=== PATIENT | female | born 1980 | race Caucasian/White ===

== ENCOUNTER 2021-10-30 14:36 | Emergency (ER) | payer OTHER, SELFPAY ==
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
[2021-10-30 14:48] VITALS: BP 126/87; PULSE 105; O2SAT 100
[2021-10-30 14:57] VITALS: BP 126/68; PULSE 100; RESP 18; TEMP 36.7; O2SAT 98; BMI 37.2
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
[2021-10-30] MEDS: Acetaminophen 325 MG TABLET 975 MG PO (15:09)
[2021-10-30 16:07] VITALS: RESP 17
[2021-10-30] MEDS: Cyclobenzaprine HCl 10 MG TABLET PO (16:11)
== END 2021-10-30 16:28 | disposition home or self-care (01) ==
PROVIDERS: Emergency Provider Emergency Medicine; PCP Family Medicine
DX: S09.90XA Unspecified injury of head, initial encounter (principal); S29.012A Strain of muscle and tendon of back wall of thorax, initial encounter; V48.5XXA Car driver injured in noncollision transport accident in traffic accident, initial encounter; Y93.89 Activity, other specified; Y92.413 State road as the place of occurrence of the external cause; Y99.9 Unspecified external cause status
CPT/HCPCS: 70450; 71046; 72072; 72125; 99283; 99284

== ENCOUNTER 2024-09-24 12:37 | Outpatient (AMB) | payer OTHER, SELFPAY ==
--- NOTE | 2024-09-24 12:46 | A.OFFVIS_ITS ---
Vital Signs 09/24/24 12:47 Height 5 ft 3 in Weight 223 lb 2 oz BMI 39.5 BP 118/70 Blood Pressure Location Lt brachial Position Sitting Pulse 93 Pulse Source Pulse Oximeter Pulse Oximetry (%) 98 Oxygen Delivery Method Room Air Intake Visit Reasons: SS Intake Note: Patient presents for follow up on sjogren's, and would like refill on her Plaquenil. Allergies latex Allergy (Mild, Verified 09/24/24 12:51) Rash Tetracyclines Allergy (Verified 09/24/24 12:51) Unconscious HPI HPI SS: Details: Increase fatigue. Hard to get up out bed. Napping. Sicca symptoms are controlled in the last month. She sees forestry farm laborer regularly and uses a topical ointment to her eyes at night with benefit. Lost 25lb with semiglutide SC. She had an episode of left hand swelling last week. She took NSAID ibuprofen with benefit. She continues to have swelling in left hand but pain is tolerable. Prior to diagnosis of Sjogren syndrome she had swelling in her right hand. No raynaud's syndrome episodes. She wears gloves in the cold. [facility] Medical History (Updated 09/24/24 @ 14:22 by Chandler Jones MD) Sjogrens syndrome No known health problems Surgical History (Updated 09/24/24 @ 12:57 by Kika Carrera CMA) Bariatric surgery status Hx of LASIK Hx of breast reduction, elective Family History (Updated 09/24/24 @ 12:57 by Kika Carrera CMA) Mother Arthritis Social History (Updated 09/24/24 @ 12:58 by Kika Carrera CMA) Alcohol intake: current Comment: once weekly Patient Tobacco Use Status: Former Tobacco user Review of Systems Const All systems reviewed & are unremarkable except as noted in HPI and below Physical Exam Vital Signs: Last Vital Signs Pulse 93 09/24/24 12:47 BP 118/70 09/24/24 12:47 Pulse Ox 98 09/24/24 12:47 Oxygen Delivery Method Room Air 09/24/24 12:47 BMI result Body Mass Index 39.5 Const Other: General: Comfortable CVS: RRR Respiratory: clear to auscultation bilaterally. Good respiratory effort Skin: No lesions seen, no digital ulcerations. Discoloration of toes with redness and slight purple color MSK: Tender left 2nd MCP with synovitis present. Tender right 3rd MCP. No PIP tenderness. No wrist tenderness. She is able to make a fist with her hands. Good range of motion of upper extremities and lower extremities. Assessment & Plan Assessment & Plan (1) Sjogrens syndrome: Comment: History of Sjogren syndrome with sicca symptoms, seronegative, confirmed on minor salivary gland biopsy and Raynaud's syndrome. Hydroxychloroquine started in 2020 due to fatigue, with benefit. She has had relapse of fatigue most recently with recent episode of inflammatory arthritis affecting left wrists. 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 We will treat current symptoms with a course of prednisone. If she has recurrence, we will consider treatment with leflunomide. I advised her against the use of NSAIDs due to history of bariatric surgery due to increased risk of GI side effects including gastric ulcers with NSAID use. She has a gastric sleeve. Code(s): M35.00 - Sjogren syndrome, unspecified Category: Medical Qualifiers: Sjogren organ or system involvement: inflammatory arthritis Qualified Code(s): M35.05 - Sjogren syndrome with inflammatory arthritis Plan: Stop ibuprofen Continue hydroxychloroquine 400 mg daily. Requesting eye exam for hydroxychloroquine surveillance Prednisone course prescribed Labs to assess disease and drug monitoring on high-risk medication ordered She will monitor her joint symptoms with a log If she has recurrent joint symptoms, we will consider adding DMARD leflunomide Continue to follow-up with forestry farm laborer Dr. Silveira for dry eyes She will start going to the gym next week. We discussed importance of having a regular exercise routine Return to clinic in 3 months (2) Raynaud disease: Comment: Controlled with conservative management Code(s): I73.00 - Raynaud's syndrome without gangrene Category: Medical Qualifiers: Raynaud?s-associated gangrene presence: without gangrene Qualified Code(s): I73.00 - Raynaud's syndrome without gangrene Plan: Continue conservative management Orders: Orders Alanine Aminotransferase Today Z79.60 - double end production grinder (current) use of unspecified immunomodulators and immunosuppressants Hepatitis B,C Profile Today M35.00 - Sjogren syndrome, unspecified T Spot TB Today M35.00 - Sjogren syndrome, unspecified Complement C3 Today M35.00 - Sjogren syndrome, unspecified Protein Electrophoresis, Serum Today M35.00 - Sjogren syndrome, unspecified Cyclic Citrullinated Peptide Today M35.00 - Sjogren syndrome, unspecified Rheumatoid Factor Today M35.00 - Sjogren syndrome, unspecified Erythrocyte Sedimentation Rate Today M35.00 - Sjogren syndrome, unspecified C Reactive Protein Today M35.00 - Sjogren syndrome, unspecified Aspartate Amino Transferase Today Z79.60 - shelter (current) use of unspecified immunomodulators and immunosuppressants Complete Blood Count Auto Diff Today Z79.60 - shelter (current) use of unspecified immunomodulators and immunosuppressants Creatinine Today Z79.60 - shelter (current) use of unspecified immunomodulators and immunosuppressants Complement C4 Today M35.00 - Sjogren syndrome, unspecified Medications: New prednisone Take 3 tablets daily 3 days, 2 tablets daily 3 days, 1 tablet daily 3 days then stop 5 mg PO DIRECTED 18 tabs 0RF Coding Level of Care Code Est Pt Level 4 (94678) Complex EM visit Add On G2211 Diagnoses Sjogren syndrome with inflammatory arthritis M35.05 Sjogren organ or system involvement: inflammatory arthritis Raynaud's disease without gangrene I73.00 Raynaud?s-associated gangrene presence: without gangrene
[2024-09-24 12:47] VITALS: BP 118/70; PULSE 93; O2SAT 98; BMI 39.5
== END 2024-09-24 13:44 | disposition home or self-care (01) ==
PROVIDERS: PCP Family Medicine; Visit Provider Internal Medicine Rheumatology
DX: M35.05 Sjogren syndrome with inflammatory arthritis (principal); I73.00 Raynaud's syndrome without gangrene
CPT/HCPCS: 99214

== ENCOUNTER 2024-09-24 12:37 | Outpatient (REF) | payer OTHER, SELFPAY ==
[2024-09-24 17:22] LABS: MANUAL DIFF FLAG NO
[2024-09-24 17:30] LABS: Basophils Absolute Auto 0.1 X10*3/uL (0.0-0.2); Basophils Percent Auto 0.7 % (0-2); Eosinophils Absolute Auto 0.1 X10*3/uL (0.0-0.4); Eosinophils Percent Auto 0.8 % (0-4); Hematocrit 34.4 % (37.0-47.0); Hemoglobin 11.2 g/dl (12.0-16.0); Imm Gran Abs Auto 0.03 X10*3/uL (0.00-0.03); Imm Gran Pct Auto 0.3 % (0.0-0.4); Lymphocytes Absolute Auto 1.6 X10*3/uL (1.2-4.9); Mean Corpuscular HGB Conc 32.6 g/dl (31.0-35.0); Mean Corpuscular Hemoglobin 27.2 pg (27.0-33.0); Mean Corpuscular Volume 83.5 fL (80.0-98.0); Monocytes Absolute Auto 0.5 X10*3/uL (0.1-1.2); Neutrophils Absolute Auto 6.5 x10*3/uL (2.0-8.3); Neutrophils Percent Auto 74.2 % (45-73); Platelet Count 413 X10*3/uL (160-400); Red Blood Count 4.12 X10*6/uL (4.20-5.50); Red Cell Distribution Width 14.9 % (11.0-16.0); White Blood Count 8.8 X10*3/uL (4.8-10.8)
[2024-09-24 17:38] LABS: Rheumatoid Factor < 13.0 IU/mL (<15.0)
[2024-09-24 17:40] LABS: Alanine Aminotransferase 63 U/L (0-31); Aspartate Amino Transferase 59 U/L (5-31); C Reactive Protein 0.71 mg/dL (< or = 0.50); Estimated Glomerular Filt Rate > 60
[2024-09-24 18:08] LABS: Erythrocyte Sedimentation Rate 13 MM/HR (0-20)
[2024-09-25 03:52] LABS: HBS Num1 192.53 mIU/mL (0-7.99); HBc Num1 0.25 S/CO (0.00-0.79); HBsAGNum1 0.32 S/CO (0.00-0.99); Hepatitis B Core Antibody Nonreactive (Nonreactive); Hepatitis B Surface Antigen Negative (Negative); ~HepC Num1 0.12 S/CO (0.00-0.79); ~Hepatitis B Surface Antibody REACTIVE (Nonreactive); ~Hepatitis C Antibody Nonreactive (Nonreactive)
[2024-09-25 10:39] LABS: Complement C3 143 mg/dL (83-193)
[2024-09-27 17:33] LABS: TS Negative Control Passed; TS Panel A 0; TS Panel B 0; TS Positive Control Passed; TSpotTB Negative (Negative)
[2024-09-27 18:28] LABS: Cyclic Citrullinated Peptide <16 UNITS
[2024-09-29 09:18] LABS: Prot Elec - Albumin 3.5 g/dL (3.8-4.8); Prot Elec - Alpha1 0.3 g/dL (0.2-0.3); Prot Elec - Alpha2 0.7 g/dL (0.5-0.9); Prot Elec - Beta 1 0.5 g/dL (0.4-0.6); Prot Elec - Beta 2 0.4 g/dL (0.2-0.5); Prot Elec - Total Protein 6.4 g/dL (6.1-8.1)
== END 2024-09-24 12:38 | disposition home or self-care (01) ==
LOC: HO.HKASLDS 12:37
PROVIDERS: PCP Family Medicine; Visit Provider Internal Medicine Rheumatology
DX: M35.00 Sjogren syndrome, unspecified (principal); Z79.60 Long term (current) use of unspecified immunomodulators and immunosuppressants; Z11.1 Encounter for screening for respiratory tuberculosis
CPT/HCPCS: 36415; 82565; 84165; 84450; 84460; 85025; 85652; 86140; 86160; 86200; 86431; 86481; 86704; 86706; 86803; 87340

== ENCOUNTER 2024-10-29 09:57 | Outpatient (REF) | payer OTHER, SELFPAY ==
--- OUTSIDE RECORDS SUMMARY | 2024-10-29 10:47 | XMS_ITS | Data Portability ---
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 Plan of Treatment Reminders Order Date Submit Date Provider Last Modified By Organization Details Last Modified Time Details Appointments None recorded. Lab lipid panel, serum 2016 017 MONY [facility], [address], [address], [place], [address], 7 20:17:25 Referral nutritionis t/dietitian referral 2016 017 [email or web address] Not available 7 13:58:08 physiatry referral - pt has chronic pain in neck//spasm in upper back/headac hes. pt feels she has lower extremity numbness and is concerned re cervical spinal stenosis. Pt tried PT few yrs ago and found no relief 2016 017 abigby [facility], [address], [address], [place], [address], 8 12:44:49 Procedures cerumen removal (PROC) 2016 017 MONY In-Office Order, Internal Use Only DO Not Attach Compendium DO Not Attach Compendium, Do Not Delete/merge, [id number] 7 10:54:44 Surgeries None recorded. Imaging None recorded. Medication Orders ranitidine 150 mg tablet 2016 017 [id number], [address], [place], [id number], 8 13:54:08 Patient TargetsNo targets recorded. Patient Instructions Encounter Date Encounter Id Patient Instructions Last Modified By Organization Details Last Modified Time 06/15/2017 [id number] earwax blockage: care instructions [email or web address] Not available 06/15/2017 10:52:38 rec. get debrox kit - apply 5 drops in affected ear before bedtime, then place cotton ball - do so nightly x 1-3 nights, then use bulb syringe with warm water in the shower on the following day to irrigate the blockage out [email or web address] Not available 06/15/2017 10:31:23 I have reviewed the note and agree with the assessment and plan of care. [email or web address] Not available 06/15/2017 12:39:08 10/13/2017 [id number] back pain: care instructions Not available 10/13/2017 14:18:30 back care and preventing injuries: care instructions Not available 10/13/2017 14:18:30 I have reviewed the note and agree with the assessment and plan of care. marco Not available 10/13/2017 15:03:19 Reason for Referral Physiatry Referral for Neck pain pt has chronic pain in neck//spasm in upper back/headaches. pt feels she has lower extremity numbness and is concerned re cervical spinal stenosis. 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 Refer ral for Body mass index 40+ - severely obese Referring Physician: Oneil Penn, Internal Medicine, Encounter Date: 03/23/2017 Results Created Date Observation Date Name Description Value Unit Range Abnormal Flag Note LastModifiedBy Organization Detail LastModifiedTime 03/23/20 17 03/23/2017 CMP, serum or plasm a glucose 93 mg/dL (70-99 ) Not Available [facility] [address] [place], [address], 03/23/2017 20:17:24 03/23/20 17 03/23/2017 CMP, serum or plasm a BUN 12 mg/dL (6-20) Not Available [facility] [address] [place], [address], 03/23/2017 20:17:24 03/23/2003/23/2017 CMP, serum or plasm a creatinine 0.8 mg/dL (0.5-1 .0) Not Available [facility] [address] [place], [address], 03/23/2017 20:17:24 03/23/2003/23/2017 CMP, serum or plasm a sodium 139 mmol/ L (133-1 45) Not Available [facility] [address] [place], [address], 03/23/2017 20:17:24 03/23/2003/23/2017 CMP, serum or plasm a potassium 4.0 mmol/ L (3.6-5 .2) Not Available [facility] [address] [place], [address], 03/23/2017 20:17:24 03/23/2003/23/2017 CMP, serum or plasm a chloride 101 mmol/ L (98-10 7) Not Available [facility] [address] [place], [address], 03/23/2017 20:17:24 03/23/2003/23/2017 CMP, serum or plasm a bicarbonate 24 mmol/ L (22-29 ) Not Available [facility] [address] [place], [address], 03/23/2017 20:17:24 03/23/2003/23/2017 CMP, serum or plasm a anion gap 14 (4-17) Not Available [facility] [address] [place], [address], 03/23/2017 20:17:24 03/23/2003/23/2017 CMP, serum or plasm a albumin 4.2 gm/dL (3.4-4 .8) Not Available [facility] [address] [place], [address], 03/23/2017 20:17:24 03/23/20 17 03/23/2017 CMP, serum or plasm a calcium 8.9 mg/dL (8.6-1 0.5) Not Available [facility] [address] [place], [address], 03/23/2017 20:17:24 03/23/2003/23/2017 CMP, serum or plasm a bilirubin,to oumar 0.3 mg/dL (0-1.2 ) Not Available [facility] [address] [place], [address], 03/23/2017 20:17:24 03/23/2003/23/2017 CMP, serum or plasm a total protein 6.8 gm/dL (6.2-8 .2) Not Available [facility] [address] [place], [address], 03/23/2017 20:17:24 03/23/2003/23/2017 CMP, serum or plasm a Ag ratio 1.6 Not Available [facility] [address] [place], [address], 03/23/2017 20:17:24 03/23/2003/23/2017 CMP, serum or plasm a AST 23 U/L (0-32) Not Available [facility] [address] [place], [address], 03/23/2017 20:17:24 03/23/2003/23/2017 CMP, serum or plasm a alk phos 65 U/L (35-10 4) Not Available [facility] [address] [place], [address], 03/23/2017 20:17:24 03/23/2003/23/2017 CMP, serum or plasm a ALT 17 U/L (0-33) Not Available [facility] [address] [place], [address], 03/23/2017 20:17:24 03/23/2003/23/2017 CMP, serum or plasm a est GFR non 96 mL/mi n/1.7 3_M2 The CKD-E PI creat inine equat ion has not been valid ated in child jelena (<18 years ), pregn ant women , in some racia l or ethni c subgr oups other than Cauca sians and Afric an Ameri cans. Not Available [facility] [address] [place], [address], 03/23/2017 20:17:24 03/23/2003/23/2017 CMP, serum or plasm a est GFR 111 mL/mi n/1.7 3_M2 The CKD-E PI creat inine equat ion has not been valid ated in child jelena (<18 years ), pregn ant women , in some racia l or ethni c subgr oups other than Cauca sians and Afric an Ameri cans. Not Available [facility] [address] [place], [address], 03/23/2017 20:17:24 03/23/2003/23/2017 lipid panel , serum cholesterol, total 162 mg/dL (<200) Not Available [facility] [address] [place], [address], 03/23/2017 20:17:25 03/23/2003/23/2017 lipid panel , serum triglyceride 89 mg/dL (<150) Not Available [facility] [address] [place], [address], 03/23/2017 20:17:25 03/23/2003/23/2017 lipid panel , serum HDL chol 57 mg/dL (>39) Not Available [facility] [address] [place], [address], 03/23/2017 20:17:25 03/23/20 17 03/23/2017 lipid panel , serum LDL cholesterol, calculated 87 mg/dL (0-130 ) Not Available [facility] [address] [place], [address], 03/23/2017 20:17:25 03/23/20 17 03/23/2017 lipid panel , serum non HDL cholesterol (calc) 105 mg/dL (<160) Not Available [facility] [address] [place], [address], 03/23/2017 20:17:25 Result Notes None recorded. Problems Name Problem SNOMED Code Status Onset Date Resolution Date Notes Provider Name and Address Organization Details Recorded Time Abnormal weight gain 628694230 Completed 201104/17/2014 RECORDED 05/30/20 12 8:37AM BY SAMRA RAPP MA, IVORY ON/JUAN DAVID KellerAlemanuel arvind null, [facility] 6 15:54:50 Otitis media 69313409 Completed 201104/17/2014 RECORDED 05/30/20 12 8:37AM BY SAMRA RAPP MA, ANNOTATI ON/JUAN DAVID KellerAlemanuel arvind null, [facility] 6 15:54:50 Acute pharyngi tis 896376995 Completed 200704/17/2014 RECORDED 08/18/20 08 10:53AM BY IVORY MONTEMAYOR ON/JUAN DAVID KellerAlessan arvind null, [facility] 6 15:54:50 Acute sinusiti s 29800239 Completed 201104/17/2014 RECORDED 05/30/20 12 8:37AM BY SAMRA RAPP MA, ANNOTATI ON/ADDYAS KellerAlessan arvind null, [facility] 6 15:54:50 Asthma 746935545 Completed 201104/17/2014 IMPRESSI ON: LIKELY EXACERBA BHARATI BY URI/SINU SITIS. LUNGS SOUNDS GOOD TODAY; NO INDICATI ON FOR PREDNISO NE. CONTINUE WITH INHALERS DIRECTED .; RECORDED 05/30/20 12 8:37AM BY SAMRA RAPP MA, IVORY ON/ADDEN DUM Oneil D'Alessan arvind null, [facility] 6 15:54:50 Candidal vulvovag initis 84671819 Completed 201104/17/2014 IMPRESSI ON: PT GETS FREQUENT VAGINITI S SECONDAR Y TO ABX USE. RX GIVEN FOR PT TO FILL IF SXS OCCUR.; RECORDED 05/30/20 12 8:37AM BY SAMRA RAPP MA, IVORY ON/ADDEN DUM Oneil D'Alessan arvind null, [facility] 6 15:54:50 Impacted cerumen 04636381 Completed 201104/17/2014 RECORDED 05/30/20 12 8:37AM BY SAMRA RAPP MA, IVORY ON/ADDEN DUM Oneil Librado'Alessan arvind null, [facility] 6 15:54:50 Cough 76425489 Completed 200804/17/2014 RECORDED 09/19/19 09 2:55PM BY ANDRE ARVIZU MA, ANNOTATI ON/ADDEN DUM Oneil Librado'Alessan arvind null, [facility] 6 15:54:50 Dysuria 19675853 Completed 200704/17/2014 RECORDED 08/18/20 08 11:09AM BY IVORY MONTEMAYOR ON/ADDEN DUM Oneil Librado'Alessan arvind null, [facility] 6 15:54:50 Fever 154865077 Completed 200804/17/2014 RECORDED 09/19/19 09 2:55PM BY ANDRE ARVIZU MA, ANNOTATI ON/ADDEN DUM Oneil D'Alessan arvind null, [facility] 6 15:54:50 General examinat ion of patient Completed 200704/17/2014 RECORDED 08/18/20 08 10:53AM BY IVORY MONTEMAYOR ON/ADDEN DUM Oneil LibradoSlava arvind null, [facility] 6 15:54:50 Shoulder joint pain 366216918 Completed 201104/17/2014 RECORDED 05/30/20 12 8:37AM BY SAMRA RAPP MA, IVORY ON/ADDEN DUM Oneil Hung arvind null, [facility] 6 15:54:50 Low back pain 480603050 Completed 201104/17/2014 IMPRESSI ON: MILD SCIATICA . NO SXS OF THIS FOR 2 DAYS; RECORDED 05/30/20 12 8:36AM BY SAMRA RAPP MA, IVORY ON/ADDEN DUM Oneil Hung arvind null, [facility] 6 15:54:50 Malaise and fatigue 890465319 Completed 201104/17/2014 RECORDED 05/30/20 12 8:37AM BY SAMRA RAPP MA, IVORY ON/ADDEN DUM Oneil Hung arvind null, [facility] 6 15:54:50 Active or passive immuniza tion Completed 200704/17/2014 RECORDED 08/18/20 08 10:53AM BY IVORY MONTEMAYOR ON/ADDEN DUM Oneil LibradoFaustinoan arvind null, [facility] 6 15:54:50 Influenz a vaccine needed [id number] 06 Completed 201304/17/2014 RECORDED 09/13/19 14 12:43PM BY SAMRA RAPP MA, IVORY ON/ADDEN DUM Oneil KellerAleann mariean arvind null, [facility] 6 15:54:50 Administ ration of bacteria l and viral vaccine Completed 200704/17/2014 RECORDED 08/18/20 08 11:07AM BY LUCAS CORONA, OFFICE VISIT Oneil PavonFaustinomonroe arvind null, [facility] 6 15:54:50 Candidia sis of mouth 69774217 Completed 201104/17/2014 IMPRESSI ON: TREATED FOR THRUSH X 2 NOW, MOST RECENTLY NO BENEFIT FROM ORAL ANTIFUNG ALS. LAST EXAM BY MYSELF DID NOT SEEM ALL THAT CONSISTE NT WITH THRUSH, AT THIS POINT SHOULD BE SEEN BY ENT TO CONFIRM THE DX; RECORDED 05/30/20 12 8:36AM BY SAMRA RAPP MA, IVORY ON/ADDEN DUM Oneil D'Alessan arvind null, [facility] 6 15:54:50 Chronic sinusiti s 27872392 Completed 201104/17/2014 RECORDED 05/30/20 12 8:36AM BY SAMRA RAPP MA, ANNOTATI ON/ADDEN DUM Oneil Librado'Alessan arvind null, [facility] 6 15:54:50 Viral disease 00227789 Completed 201104/17/2014 RECORDED 05/30/20 12 8:37AM BY SAMRA RAPP MA, ANNOTATI ON/ADDEN DUM Oneil Librado'Alessan arvind null, [facility] 6 15:54:50 Abnormal weight gain 943595724 Completed 201103/25/2014 RECORDED 05/30/20 12 8:37AM BY SAMRA RAPP MA, ANNOTATI ON/ADDEN DUM Oneil Librado'Alessan arvind null, [facility] 6 15:54:50 Intestin al disaccha ridase deficien cy 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 Active 2013 Brittany amos, [facility] 7 13:06:03 Otitis media 51313646 Completed 201103/25/2014 RECORDED 05/30/20 12 8:37AM BY SAMRA RAPP MA, ANNOTATI ON/ADDEN DUM Oneil Librado'Alessan arvind null, [facility] 6 15:54:50 Acute pharyngi tis 811435287 Completed 200703/25/2014 RECORDED 08/18/20 08 10:53AM BY IVORY MONTEMAYOR ON/ADDEN DUM Oneil D'Alessan arvind null, [facility] 6 15:54:50 Acute sinusiti s 64544986 Completed 201103/25/2014 RECORDED 05/30/20 12 8:37AM BY SAMRA RAPP MA, ANNOTATI ON/ADD [facility] Abhilash samuels null, [facility] 6 15:54:50 Allergic rhinitis 96190840 Completed 201309/29/2016 RECORDED 01/18/20 14 3:12PM BY FAITH BRADFORD MA, OFFICE VISIT Brittany amos, [facility] 7 11:43:38 Alopecia 25231676 Active 2013 Brittany amos, [facility] 7 13:06:29 Anemia 723628530 Active 2013 Brittany amos, [facility] 7 13:06:12 Intrinsi c asthma 134558624 Active 2013 Brittany amos, [facility] 7 13:06:09 Intrinsi c asthma 014212762 Completed 200803/25/2014 RECORDED 09/19/19 09 2:55PM BY ANDRE ARVIZU MA, ANNOTATI ON/ [facility] Brittany amos, [facility] 7 13:06:09 Asthma 608724197 Completed 201103/25/2014 IMPRESSI ON: LIKELY EXACERBA BHARATI BY URI/SINU SITIS. LUNGS SOUNDS GOOD TODAY; NO INDICATI ON FOR PREDNISO NE. CONTINUE WITH INHALERS DIRECTED .; RECORDED 05/30/20 12 8:37AM BY SAMRA RAPP MA, ANNOTATI ON/ADDEN [facility] Oneil samuels null, [facility] 6 15:54:50 Candidal vulvovag initis 66174527 Completed 201103/25/2014 IMPRESSI ON: PT GETS FREQUENT VAGINITI S SECONDAR Y TO ABX USE. RX GIVEN FOR PT TO FILL IF SXS OCCUR.; RECORDED 05/30/20 12 8:37AM BY SAMRA RAPP MA, ANNOTATI ON/ADDEN DUM Oneil D'Alessan arvind null, [facility] 6 15:54:50 Impacted cerumen 63996727 Completed 201103/25/2014 RECORDED 05/30/20 12 8:37AM BY SAMRA RAPP MA, ANNOTATI ON/ADDEN DUM Oneil D'Alessan arvind null, [facility] 6 15:54:50 Cough 21332741 Completed 200803/25/2014 RECORDED 09/19/19 09 2:55PM BY ANDRE ARVIZU MA, ANNOTATI ON/ADDEN DUM Oneil D'Alessan arvind null, [facility] 6 15:54:50 Dysuria 07879381 Completed 200703/25/2014 RECORDED 08/18/20 08 11:09AM BY IVORY MONTEMAYOR ON/ADDEN DUM Oneil Librado'Alessan arvind null, [facility] 6 15:54:50 Elevated blood-pr essure reading without diagnosi s of hyperten dk 054619890 Active 2013 Brittany amos, [facility] 7 13:06:16 Fever 227575068 Completed 200803/25/2014 RECORDED 09/19/19 09 2:55PM BY ANDRE ARVIZU MA, ANNOTATI ON/ADDEN DUM Oneil Librado'Alessan arvind null, [facility] 6 15:54:50 Tobacco user 116133447 Active 2013 Brittany amos, [facility] 7 13:05:57 History of clinical finding in subject 447270998 Completed 201309/29/2016 RECORDED 01/18/20 14 3:12PM BY FAITH BRADFORD MA, OFFICE VISIT Brittany amos, [facility] 7 11:43:31 Adult health examinat ion Completed 201309/29/2016 RECORDED 01/18/20 14 3:15PM BY FAITH BRADFORD MA, OFFICE VISIT Brittany amos, [facility] 7 11:43:22 General examinat ion of patient Completed 200703/25/2014 RECORDED 08/18/20 08 10:53AM BY IVORY MONTEMAYOR ON/ADDEN DUM Oneil D'Alessan arvind null, [facility] 6 15:54:50 Hyperlip idemia 54436150 Active 2013 Brittany amos, [facility] 7 13:06:23 Shoulder joint pain 724610198 Completed 201103/25/2014 RECORDED 05/30/20 12 8:37AM BY SAMRA RAPP MA, ANNOTATI ON/ADDEN DUM Oneil D'Alessan arvind null, [facility] 6 15:54:50 Low back pain 380449432 Completed 201103/25/2014 IMPRESSI ON: MILD SCIATICA . NO SXS OF THIS FOR 2 DAYS; RECORDED 05/30/20 12 8:36AM BY SAMRA RAPP MA, ANNOTATI ON/ADDEN DUM Oneil D'Alessan arvind null, [facility] 6 15:54:50 Malaise and fatigue 597030378 Completed 201103/25/2014 RECORDED 05/30/20 12 8:37AM BY SAMRA RAPP MA, ANNOTATI ON/ADDEN DUM Oneil D'Alessan arvind null, [facility] 6 15:54:50 Migraine 42859686 Active 2013 Brittany amos, [facility] 7 13:06:19 Migraine 02298435 Completed 201103/25/2014 RECORDED 12/01/19 12 8:11AM BY ANDRE ARVIZU MA, ANNOTATI ON/ADDEN DUM Brittany amos, [facility] 7 13:06:19 Neck pain 41217725 Completed 201309/29/2016 IMPRESSI ON: IF NOT BETTER WITH PT, MAKE OV F/U; RECORDED 01/18/20 14 3:12PM BY FAITH BRADFORD MA, OFFICE VISIT Brittany amos, [facility] 7 11:43:42 Active or passive immuniza tion Completed 200703/25/2014 RECORDED 08/18/20 08 10:53AM BY IVORY MONTEMAYOR ON/ADD DUM Oneil samuels null, [facility] 6 15:54:50 Influenz a vaccine needed 75710801238 06 Completed 201303/25/2014 RECORDED 09/13/19 14 12:43PM BY SAMRA RAPP MA, IVORY ON/ADD DUM Oneil samuels null, [facility] 6 15:54:50 Administ ration of bacteria l and viral vaccine Completed 200703/25/2014 RECORDED 08/18/20 08 11:07AM BY LUCAS CORONA, OFFICE VISIT Oneil amos, [facility] 6 15:54:50 Morbid obesity 269223185 Active 2013 Brittany amos, [facility] 7 13:06:06 Candidia sis of mouth 03569281 Completed 201103/25/2014 IMPRESSI ON: TREATED FOR THRUSH X 2 NOW, MOST RECENTLY NO BENEFIT FROM ORAL ANTIFUNG ALS. LAST EXAM BY MYSELF DID NOT SEEM ALL THAT CONSISTE NT WITH THRUSH, AT THIS POINT SHOULD BE SEEN BY ENT TO CONFIRM THE DX; RECORDED 05/30/20 12 8:36AM BY SAMRA RAPP MA, IVORY ON/ADDEN DUM Oniel samuels null, [facility] 6 15:54:50 Raynaud' s disease 026737220 Active 2013 Brittany De Dios MA null, [facility] 7 13:05:59 Adult health examinat ion Completed 201103/25/2014 RECORDED 05/30/20 12 8:37AM BY SAMRA RAPP MA, ANNOTATI ON/ADDEN DUM Brittany De Dios MA null, [facility] 7 11:43:22 Chronic sinusiti s 50635143 Completed 201103/25/2014 RECORDED 05/30/20 12 8:36AM BY SAMRA RAPP MA, ANNOTATI ON/ADDEN DUM Oneil D'Alessan arvind null, [facility] 6 15:54:50 Viral disease 44393653 Completed 201103/25/2014 RECORDED 05/30/20 12 8:37AM BY SAMRA RAPP MA, ANNOTATI ON/ADDEN DUM Oneil D'Alessan arvind null, [facility] 6 15:54:49 Abnormal weight gain 353013133 Completed 201104/18/2014 RECORDED 05/30/20 12 8:37AM BY SAMRA RAPP MA, ANNOTATI ON/ADDEN DUM Oneil D'Alessan arvind null, [facility] 6 15:54:50 Otitis media 55921792 Completed 201104/18/2014 RECORDED 05/30/20 12 8:37AM BY SAMRA RAPP MA, ANNOTATI ON/ADDEN DUM Oneil D'Alessan arvind null, [facility] 6 15:54:50 Acute pharyngi tis 497854645 Completed 200704/18/2014 RECORDED 08/18/20 08 10:53AM BY GISELE MONTEMAYORATI ON/ADDEN DUM Oneil D'Alessan arvind null, [facility] 6 15:54:50 Acute sinusiti s 34581628 Completed 201104/18/2014 RECORDED 05/30/20 12 8:37AM BY ASMRA RAPP MA, ANNOTATI ON/ADDEN DUM Oneil D'Alessan arvind null, [facility] 6 15:54:50 Asthma 363336344 Completed 201104/18/2014 IMPRESSI ON: LIKELY EXACERBA BHARATI BY URI/SINU SITIS. LUNGS SOUNDS GOOD TODAY; NO INDICATI ON FOR PREDNISO NE. CONTINUE WITH INHALERS DIRECTED .; RECORDED 05/30/20 12 8:37AM BY SAMRA RAPP MA, IVORY ON/ADDEN DUM Oneil D'Alessan arvind null, [facility] 6 15:54:50 Candidal vulvovag initis 88376528 Completed 201104/18/2014 IMPRESSI ON: PT GETS FREQUENT VAGINITI S SECONDAR Y TO ABX USE. RX GIVEN FOR PT TO FILL IF SXS OCCUR.; RECORDED 05/30/20 12 8:37AM BY SAMRA RAPP MA, IVORY ON/ADDEN DUM Oneil D'Alessan arvind null, [facility] 6 15:54:50 Impacted cerumen 80540685 Completed 201104/18/2014 RECORDED 05/30/20 12 8:37AM BY SAMRA RAPP MA, ANNOTATI ON/ADDEN DUM Oneil D'Alessan arvind null, [facility] 6 15:54:50 Cough 93458963 Completed 200804/18/2014 RECORDED 09/19/19 09 2:55PM BY ANDRE ARVIZU MA, GISELEATI ON/ADDEN DUM Oneil D'Alessan arvind null, [facility] 6 15:54:50 Dysuria 74695160 Completed 200704/18/2014 RECORDED 08/18/20 08 11:09AM BY IVORY MONTEMAYOR ON/ADDEN DUM Oneil D'Alessan arvind null, [facility] 6 15:54:50 Fever 033478800 Completed 200804/18/2014 RECORDED 09/19/19 09 2:55PM BY ANDRE ARVIZU MA, IVORY ON/ADDEN DUM Oneil D'Alessan arvind null, [facility] 6 15:54:50 General examinat ion of patient Completed 200704/18/2014 RECORDED 08/18/20 08 10:53AM BY IVORY MONTEMAYOR ON/ADDEN DUM Oneil Librado'Alessan arvind null, [facility] 6 15:54:50 Shoulder joint pain 925041920 Completed 201104/18/2014 RECORDED 05/30/20 12 8:37AM BY SAMRA RAPP MA, IVORY ON/ADDEN DUM Oneil Librado'Alessan arvind null, [facility] 6 15:54:50 Low back pain 373154149 Completed 201104/18/2014 IMPRESSI ON: MILD SCIATICA . NO SXS OF THIS FOR 2 DAYS; RECORDED 05/30/20 12 8:36AM BY SAMRA RAPP MA, IVORY ON/ADDEN DUM Oneil Librado'Alessan arvind null, [facility] 6 15:54:50 Malaise and fatigue 791778866 Completed 201104/18/2014 RECORDED 05/30/20 12 8:37AM BY SAMRA RAPP MA, ANNOTATI ON/ADDEN DUM Oneil Librado'Alessan arvind null, [facility] 6 15:54:50 Active or passive immuniza tion Completed 200704/18/2014 RECORDED 08/18/20 08 10:53AM BY IVORY MONTEMAYOR ON/ADDEN DUM Oneil Librado'Alessan arvind null, [facility] 6 15:54:50 Influenz a vaccine needed 60140612836 06 Completed 201304/18/2014 RECORDED 09/13/19 14 12:43PM BY SAMRA RAPP MA, ANNOTATI ON/ADDEN DUM Oneil amos [facility] 6 15:54:50 Administ ration of bacteria l and viral vaccine Completed 200704/18/2014 RECORDED 08/18/20 08 11:07AM BY LUCAS CORONA, OFFICE VISIT Oneil amos [facility] 6 15:54:50 Candidia sis of mouth 54276879 Completed 201104/18/2014 IMPRESSI ON: TREATED FOR THRUSH X 2 NOW, MOST RECENTLY NO BENEFIT FROM ORAL ANTIFUNG ALS. LAST EXAM BY MYSELF DID NOT SEEM ALL THAT CONSISTE NT WITH THRUSH, AT THIS POINT SHOULD BE SEEN BY ENT TO CONFIRM THE DX; RECORDED 05/30/20 12 8:36AM BY SAMRA RAPP MA, IVORY ON/[facility] Oneil amos [facility] 6 15:54:50 Chronic sinusiti s 45262043 Completed 201104/18/2014 RECORDED 05/30/20 12 8:36AM BY SAMRA RAPP MA, IVORY ON/[facility] Oneil maos [facility] 6 15:54:50 Viral disease 27523109 Completed 201104/18/2014 RECORDED 05/30/20 12 8:37AM BY SAMRA RAPP MA, IVORY ON/[facility] Oneil amos [facility] 6 15:54:50 Body mass index 30+ - obesity 439119810 Active Oneil amos [facility] 6 15:54:50 Sleep disorder 52967746 Active Oneil amos [facility] 6 16:17:59 Change in skin lesion 395892125 Completed 09/29/2016 Brittany amos, [facility] 7 11:43:34 Knee pain Active 2016 Margy amos [facility] 7 13:11:22 Allergic conjunct ivitis 458063931 Active 2016 Oneil samuels [facility] 7 20:34:35 Problem Notes None recorded. Procedures Surgical History Date Name Laterality Status Provider Name and Address Organization Details Recorded Time 8 Date of Last Pap Smear completed Roberta Ga [facility] 11/28/2017 15:23:37 7 Eye Surgery completed Brittany De Dios MA [facility] 09/29/2016 11:54:41 7 Breast Surgery completed Brittanyavril De Dios [facility] 02/11/2016 15:13:40 0 Orthopedic Surgery completed Brittanyavril De Dios [facility] 02/11/2016 15:13:56 Imaging Results None recorded. Procedure Notes None recorded. Medical Equipment None Reported. Allergies Allergen ID Allergen Name Allergen Category Reaction Reaction Severity Criticality Documentation Date Start Date Code Code System Note Provider Name and Address Organization Details Recorded Time 764 latex environme nt,medica tion Not available Not available Not available 03/25/20142013 55537 91 [facility] 13:05[facility]44 765 Product containin g tetracycl ine and antibioti c (product) medicatio n Not available Not available Not available 03/25/20142013 62783 1004 SNOMED [facility] 7 13:05:48 Medications Name Sig Start Date Stop Date Status Note LastModified by Organization Details LastModified Time cyclobenz aprine 10 mg tablet AT BEDTIME NEEDED MUSCLE SPASM 09/23 completed RECORDED 11/14/19 14 12:54PM BY SUKHWINDER ADAN, MEDICATI ON AUT[facility]-THOMAS CTIVAT[facility] N; Not Available Not Available Not Available amoxicill in 500 mg capsule 02/10 completed Not Available Not Available Not Available clotrimaz ole 10 mg roxanna 3 TIMES A DAY 12/07 completed RECORDED 12/13/19 12 1:26PM BY JONATHAN BRADFORD PA-C, MEDICATI ON AUTO-THOMAS CTIVATIO N; Not Available Not Available Not Available levonorge strel 21 mcg/24 hr (up to 8 years) 52 mg intrauter ine device EVERY 5 YEARS 03/23 completed Not Available Not Available Not Available Colace 100 mg capsule Take 1 capsule every day by oral route as needed. 10/13 completed Not Available Not Available Not Available prednison e 10 mg tablet QD 08/20 completed RECORDED 12/31/19 10 2:09PM BY CICI VAZ MD, MEDICATI ON AUTO-THOMAS CTIVATIO N; Not Available Not Available Not Available trazodone 50 mg tablet take 3 tablets by mouth once daily active Not Available Not Available No t Available cetirizin e 10 mg tablet Take 1 tablet every day by oral route for 30 days. 03/23 completed Not Available Not Available Not Available ibuprofen 800 mg tablet THREE TIMES DAILY 02/01 completed RECORDED 02/07/20 12 10:49AM BY SUKHWINDER ADAN, MEDICATI ON AUT[facility]OMAS CTIVATIO N; Not Available Not Available Not Available fluconazo le 150 mg tablet X 1 PRN YEAST VAGINITI S 02/10 completed Not Available Not Available Not Available clarithro mycin 500 mg tablet TWO TIMES DAILY 08/29 completed RECORDED 12/31/19 10 2:09PM BY CICI VAZ MD, MEDICATI ON AUTO-THOMAS CTIVATIO N; Not Available Not Available Not Available fluconazo le 200 mg tablet DAILY 10/21 completed RECORDED 10/21/19 11 10:40AM BY ANDRE ARVIZU MA, OFFICE VISIT; Not Available Not Available Not Available meloxicam 15 mg tablet DAILY 10/13 completed RECORDED 11/14/19 14 12:54PM BY SUKHWINDER ADAN, MEDICATI ON AUT[employer]-THOMAS CTIVATIO N; Not Available Not Available Not Available Hycodan (with homatropsarah ne) 5 mg-1.5 mg tablet TID/PRN 09/27 completed RECORDED 10/10/19 08 2:13PM BY HENRI STEWART MD, MEDICATI ON AUTO-THOMAS CTIVATIO N; Not Available Not Available Not Available prednison e 20 mg tablet DAILY 09/29 completed Not Available Not Available Not Available clobetaso l 0.05 % topical cream apply thin layer to skin prn active Not Available Not Available No t Available Zithromax Z-Tutu 250 mg tablet DAILY 10/26 completed RECORDED 11/02/19 11 3:58PM BY SUKHWINDER ONEIL, MEDICATI ON AUTO-THOMAS CTIVATIO N; Not Available Not Available Not Available metronida zole 500 mg tablet 02/10 completed Not Available Not Available Not Available acetamino phen 300 mg-codein e 30 mg tablet Take 1 tablet every day by oral route as directed for 2 days. 02/10 completed Not Available Not Available Not Available amlodipin e 5 mg tablet DAILY 10/30 completed RECORDED 10/30/19 09 3:32PM BY ONEIL SAUMELS MD, ANNOTATI ON/JUAN DAVID DUM; Not Available Not Available Not Available butalbita l-acetami nophen-ca ffeine 50 mg-325 mg-40 mg tablet Take 1 tablet twice a day by oral route as needed for 15 days. active Not Available Not Available No t Available Macrobid 100 mg capsule TWO TIMES DAILY 01/06 completed RECORDED 02/06/20 08 10:17AM BY RUSSELL DIETZ, MEDICATI ON AUTO-THOMAS CTIVATIO N; Not Available Not Available Not Available amoxicill in 875 mg tablet BID 04/01 completed RECORDED 04/26/20 11 1:02PM BY GUY JENNINGS PA-C, MEDICATI ON AUTO-THOMAS CTIVATIO N; Not Available Not Available Not Available lorazepam 0.5 mg tablet 09/29 completed Not Available Not Available Not Available ranitidin e 150 mg tablet Take 1 tablet twice a day by oral route for 30 days. 10/13 completed Not Available Not Available Not Available ferrous gluconate 240 mg (27 mg iron) tablet QD 07/14 completed RECORDED 07/14/20 09 3:19PM BY ANDRE ARVIZU MA, OFFICE VISIT; Not Available Not Available Not Available hydrocodo ne-homatr opine 5 mg-1.5 mg/5 mL oral syrup TID/PRN 02/10 completed Not Available Not Available Not Available gabapenti n 300 mg capsule 02/10 completed Not Available Not Available Not Available Claritin- D 12 Hour 5 mg-120 mg tablet,ex tended release Take 1 tablet every 12 hours by oral route. 07/31 completed Not Available Not Available Not Available omeprazol e 20 mg capsule,d elayed release Take 1 capsule every day by oral route for 60 days. active Not Available Not Available No t Available monteluka st 10 mg tablet QD 07/14 completed RECORDED 07/14/20 09 3:19PM BY ANDRE ARVIZU MA, OFFICE VISIT; Not Available Not Available Not Available mupirocin 2 % topical ointment 09/29 completed Not Available Not Available Not Available fluticaso ne propionat e 50 mcg/actua tion nasal spray,emiliano pension Inhale 2 sprays every day by intranas al route for 30 days. 09/29 completed Not Available Not Available Not Available loratadin e 10 mg tablet Take 1 tablet every day by oral route. 10/13 completed Not Available Not Available Not Available amoxicill in 875 mg-potass ium clavulana te 125 mg tablet BID 02/10 completed Not Available Not Available Not Available oxycodone 5 mg tablet 07/31 completed Not Available Not Available Not Available albuterol (refill) 90 mcg/actua tion aerosol inhaler FOUR TIMES DAILY, NEEDED 02/10 completed RECORDED 01/18/20 14 3:52PM BY ONEIL SAMUELS MD, OFFICE VISIT; Not Available Not Available Not Available cyclobenz aprine 5 mg tablet EVERY EIGHT HOURS, NEEDED FOR SPASM 02/01 completed RECORDED 02/07/20 12 10:49AM BY SUKHWINDER ADAN, MEDICATI ON AUTO-THOMAS CTIVATIO N;CAUTIO N DROWSINE SS Not Available Not Available Not Available escitalop philip 5 mg tablet QD 07/14 completed RECORDED 07/14/20 09 3:19PM BY ANDRE ARVIZU MA, OFFICE VISIT; Not Available Not Available Not Available ofloxacin TWO TIMES DAILY 04/02 completed RECORDED 04/26/20 11 1:02PM BY GUY JENNINGS PA-C, MEDICATI ON AUTO-THOMAS CTIVATIO N; Not Available Not Available Not Available ipratropi um-albute rol THREE TIMES DAILY, NEEDED 07/14 completed RECORDED 07/14/20 09 3:19PM BY ANDRE ARVIZU MA, OFFICE VISIT; Not Available Not Available Not Available triamcino lone acetonide 75 mcg/actua tion aerosol inhaler QID 10/20 completed RECORDED 11/15/19 08 1:34PM BY HENRI STEWART MD, MEDICATI ON AUTO-THOMAS CTIVATIO N; Not Available Not Available Not Available fexofenad ine 30 mg disintegr ating tablet BID 08/15 completed RECORDED 08/15/20 09 8:47AM BY ANDRE ARVIZU MA, OFFICE VISIT; Not Available Not Available Not Available Wal-Zyr (ketotife n) 0.025 % (0.035 %) eye drops INSTILL 1 DROP INTO AFFECTED EYE(S) BY OPHTHALM IC ROUTE 2 TIMES PER DAY 2016 active Not Available Not Available Not Avai lable Vitals Date Recorded Body height Body mass index (BMI) Body weight Body temperature Oxygen saturation Oxygen saturation in Arterial blood by Pulse oximetry Heart rate Systolic blood pressure Diastolic blood pressure Provider Name and Address Organization Details Last Updated DateTime 7 161.925 cm 43.8 kg/m2 596160. 27 g 98.6 [degF] 97 % 97 % 103 /min 119 mm[Hg] 79 mm[Hg] Brittany De Dios MA [facility] 7 13:14:29 Date Recorded Body height Oxygen saturation Oxygen saturation in Arterial blood by Pulse oximetry Heart rate Body mass index (BMI) Body weight Body temperature Systolic blood pressure Diastolic blood pressure Provider Name and Address Organization Details Last Updated DateTime 7 161.925 cm 100 % 100 % 75 /min 43.9 kg/m2 747459. 67 g 98.1 [degF] 119 mm[Hg] 84 mm[Hg] Brittany De Dios [facility] 7 10:24:25 Date Recorded Body height Body mass index (BMI) Body weight Heart rate Oxygen saturation Oxygen saturation in Arterial blood by Pulse oximetry Systolic blood pressure Diastolic blood pressure Provider Name and Address Organization Details Last Updated DateTime 7 161.925 cm 40.9 kg/m2 793608. 6 g 84 /min 98 % 98 % 110 mm[Hg] 84 mm[Hg] Brittany De Dios [facility] 7 11:02:49 Date Recorded Body height Body mass index (BMI) Body weight Body temperature Heart rate Oxygen saturation Oxygen saturation in Arterial blood by Pulse oximetry Systolic blood pressure Diastolic blood pressure Provider Name and Address Organization Details Last Updated DateTime 8 161.925 cm 36 kg/m2 13569.2 1 g 97.8 [degF] 92 /min 99 % 99 % 117 mm[Hg] 88 mm[Hg] Dinorah Scott [facility] 8 13:52:46 Social History Question Answer Notes LastModified by Organizat ion Details LastModified Time Tobacco Smoking Status Former Smoker Samra amos [facility] 01/30/2015 14:22:32 Do You Have An Advance Directive? Yes Information not available 02/11/2016 What Is Your Level Of Alcohol Consumption? Occasional Information not available 01/30/2015 Is Blood Transfusion Acceptable In An Emergency? Yes Information not available 02/11/2016 What Is Your Level Of Caffeine Consumption? Occasional Coffee/tea/ soda Information not available 02/11/2016 Are You Currently Employed? Yes Information not available 01/30/2015 What Type Of Diet Are You Following? 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 With Others - Gustavo- Information not available 01/30/2015 Do You Take Precautions To Prevent Distracted Driving? Yes Information not available 02/11/2016 How Often Do You Need To Have Someone Help You When You Read Instructions, Pamphlets, Or Other Written Material From Your Doctor Or Pharmacy? Never Information not available 02/11/2016 Have You Served In The ? No Information not available 03/23/2017 What Was The Date Of Your Most Recent Tobacco Screening? 10/13/2017 Information not available 04/04/2019 How Many Children Do You Have? 0 Information not available 01/30/2015 Do You Use Protection During Sex? No Information not available 02/11/2016 Seat Belts Used Routinely Yes Information not available 02/11/2016 Are You Sexually Active? Yes Information not available 02/11/2016 Smoke Alarm In Home Yes Information not available 02/11/2016 Are You Passively Exposed To Smoke? No Information not available 02/11/2016 How Much Tobacco Do You Smoke? No Information not available 02/11/2016 Do You Use Sunscreen Routinely? Yes Information not available 02/11/2016 Sex: Unknown Functional Status Question Answer Note LastModified by Organizat ion Details LastModified Time Are you able to care for yourself? Yes Information not available 02/11/2016 What is your exercise level? Moderate 3-4 times a week for 30-60 min Information not available 01/30/2015 Mental Status None recorded. Family History Relationship Description Onset Age of this Age Resolved Age Notes LastModified by Organization Details LastModified Time Mother Hypertensive disorder 66/201 6 mdalessandro Not available 02/11/2016 15:55:12 Mother Glaucoma mdalessandro Not avail able 02/11/2016 15:55:12 Mother Diabetes mellitus mdalessandro Not available 10/2015 15:55:12 Father Hypertensive disorder 66 mdalessandro Not available 10/2015 15:55:12 Father Heart disease mdalessandro Not available 10/2015 15:55:12 Paternal Uncle Congestive heart failure 72 mdalessandro Not available 10/2015 15:55:12 Maternal Grandmother Malignant tumor of colon 79 83 mdalessandro Not available 14:52:01 Medical History Condition Response Obesity Y Anemia Y Headaches Y Gynecological History Statement/Question Response Date of Last Pap Smear 11/08/2017 Obstetrics History GPAL:G 0 P 0 0 0 0 Immunizations Vaccine Type Date Status Note Provider Nam e and Address Organization Details Recorded Time Influenza, split virus, trivalent, preservative 7 completed Not Available [facility] 03/25/2014 13:24:16 pneumococcal polysaccharide PPV23 8 completed Not Available [facility] 03/25/2014 13:24:16 Influenza, split virus, trivalent, preservative 8 completed Not Available [facility] 03/25/2014 13:24:16 Tdap 8 completed Not Available [facility] 03/25/2014 13:24:16 Past Encounters Encounter ID Performer Location Encounter Start Date Encounter Closed Date Diagnosis/Indication Diagnosis SNOMED-CT Code Diagnosis ICD10 Code Diagnosis Note [id number] [facility] [address] [address] [facility],[address] [place] [address] 02/20/2007 00:00:00 [id number] [address] [facility],[address] [place] [address] 10/16/2006 00:00:00 [id number] [address]Comm [address] [facility],[address] [place] [address] 07/23/2007 00:00:00 [id number] auto[facility]Comm er[facility] [address] [facility],[address] [place] [address] 09/17/2007 00:00:00 [id number] [address]Comm [address] [facility],[address] [place] [address] 09/20/2007 00:00:00 [id number] auto[facility]Comm er[facility] [address] [facility],[address] [place] [address] 10/18/2007 00:00:00 [id number] auto[facility]Comm er[facility] [address] [facility],[address] [place] [address] 11/15/2007 00:00:00 [id number] [address] [place] [address] 12/31/2007 00:00:00 [id number] [address] [place] [address] 02/09/2008 00:00:00 [id number] [place] [address] 08/18/2008 00:00:00 [id number] [address] [place] [address] 09/19/2008 00:00:00 [id number] [address] [place] [address] 06/16/2009 00:00:00 [id number] auto[address]Comm [address] [facility],[address] [place] [address] 07/14/2009 00:00:00 [id number] auto[facility]Comm erce [address] [facility],[address] [place] [address] 08/15/2009 00:00:00 [id number] auto[facility]Comm erce [address] [facility] [place] [address] 09/09/2010 00:00:00 [id number] auto[address]Comm erce [address] [facility] [place] [address] 10/21/2010 00:00:00 [id number] auto[address]Comm er[address] [facility] [place] [address] 01/29/2011 00:00:00 [id number] auto[address]Comm erce [address] [facility] [place] [address] 03/22/2011 00:00:00 [id number] auto[facility]Comm erce [address] [facility] [place] [address] 03/23/2011 00:00:00 [id number] auto[facility]Comm erce [address] [facility] [place] [address] 03/25/2011 00:00:00 [id number] auto[facility]Comm erce [address] [place] [address] 04/26/2011 00:00:00 [id number] [address]Comm [address] [place] [address] 09/29/2011 00:00:00 [id number] [address] [place] [address] 12/01/2011 00:00:00 [id number] autoEComm erce [address] [place] [address] 01/23/2012 00:00:00 [id number] autoEComm erce [address] [facility] [place] [address] 05/30/2012 00:00:00 [id number] autoEComm erce [address] [facility] [place] [address] 09/13/2013 00:00:00 [id number] autoEComm erce [address] [facility] [place] [address] 01/17/2014 00:00:00 [id number] Iraida Sexton Main Office [address] [facility] [address] [place] [address] 01/30/2015 14:11:46 01/30/2015 15:17:57 Adult health examination 177898944 Body mass index 30+ - obesity 562219928 Sleep disorder 92052770 Migraine 81137533 pt rommel north uses fiorcet /she has mixed headaches/ work stress and migraines [id number] Oneil schmidt Main Office [address] [place], [place] [address] 02/11/2016 14:50:31 02/11/2016 16:21:09 Adult health examination 895661996 Z00.00 lipid levels done in 2013-low risk Change in skin lesion 39 9318201 L98.9 Sleep disorder 21365226 G47.9 pt saw sleep medicine office in [place]/ Srinivas prescribes trazadone 100 mg qhs Allergic rhinitis 499463 04 J30.9 [id number] Margy Flower Main Office [address] [facility] [address] [place] [address] 09/29/2016 11:19:21 09/29/2016 12:34:48 Body mass index 40+ - severely obese 496636300 Z68.41 E66.01 pt strongly considerin g wt loss surgery. she has been doing significan t efforts re wt loss for many years. Knee pain 09733933 M25.5 61 M25.562 Insomnia 800698787 G47.0 0 [id number] Oneil schmidt Main Office [address] [address] [place] [address] 03/23/2017 13:01:57 03/23/2017 13:58:08 Adult health examination 671376591 Z00.00 lipid levels done in 2013-low risk Neck pain 29355641 M54.2 Body mass index 40+ - severely obese 088396433 Z68.41 E66.01 pt strongly considerin g wt loss surgery. she has been doing significan t efforts re wt loss for many years. [id number] Oneil schmidt Main Office [address] [address] [place] [address] 06/15/2017 10:16:38 06/15/2017 10:52:48 Impacted cerumen 16963263 H61.23 [id number] Oneil schmidt Main Office [address] [address] [place] [address] 07/27/2017 10:10:57 07/27/2017 12:56:52 [id number] Margy Flower Main Office [address] [address] [place] [address] 07/31/2017 10:49:19 07/31/2017 12:30:22 Abdominal wall pain 922484854 R10.9 pt having appropriat e post op f/u appts Constipation 89305676 K5 9.00 stool softeners/ add miralax Gastroesop hageal reflux disease 213917208 K21.9 pt will use PPI per surgery and next year try to wean to H2 blockers Allergic rhinitis 397143 04 J30.9 cont nasal steroids and anthihista mines [id number] Henri Fuller MD Main Office [address] [address] [place] [address] 10/13/2017 13:44:11 10/13/2017 14:19:02 Spasm of back muscles 564675883 M62.830 Pt. might be having beginning of shingles, but no rash currently. ADvised to watch for rash and call office if occurs. MOst likely muscle spasm , could be due to body position during the surgery as first episode was right after the surgery. Recommend warm compresses , sports cream and TYlenol ES for pain. Health Concerns Section Related Observation LastModified by Organization Detai ls LastModified Time None Recorded Concern Status LastModified by Organization Details LastModified Time None Recorded Advance Directives Directive Y: Payers Encounter Date Sequence Insurance Name Policy Number Policy [place] Covered Member ID [place] Member ID Guarantor Name 03/23/2017 1 [facility]) [id number] Christopher Lucas [id number] Christopher Lucas 06/15/2017 1 [facility]) [id number] Christopher Lucas [id number] Christopher Lucas 07/27/2017 1 [facility] [id number] Christopher Lucas [id number] Christopher Lucas 07/31/2017 1 [facility] [id number] Christopher Lucas [id number] Christopher Lucas 10/13/2017 1 [facility] [id number] Christopher Lucas [id number] Christopher Lucas Notes Date Note Type Note Provider Name and Address Organization Details Recorded Time 06/15/2017 text/html EaracheRep[facility] Quality:throbbing Severity:continuous (getting worse over past few days) Context:no sick contacts; no recent swimming/water in ear; + h/o cerumen impaction few yrs ago, no use of qtips or debrox Modifying Factors:does not hurt to lie on, or pull on ear; nothing gives relief Associated Symptoms:no discharge from the ears; no ringing in the ears;hearing loss(R>>L) Oneil amos [facility] 06/15/2017 12:39:35 07/27/2017 text/html Hospitalization Contact RecordReported bypatient.Follow UpHospital[facility]; admit date: (Please enter in format 'MM/DD/YYYY') (07/24/17); date of discharge: (Please enter in format 'MM/DD/YYYY') (07/26/17); date of contact: (Please enter in format 'MM/DD/YYYY') (07/27/17)Notes:37 year old female underwent laparoscopic sleeve gastrectomy performed by Dr. Axel Bryant on 07/24/17. Patient tolerated procedure with no complications , and followed the post op bariatric protocol . Patient tolerated stage 1 diet and transition to stage 2 diet without difficulty . Patient was discharged in good condition with guideline s of new diet regimen per Field Software Engineer. Tent Assembler ONEYDA call to patient regarding discharge status . Patient reports doing well. Patient denies chest pain, abdominal pain, nausea, vomiting, fever, chest pain or shortness of breath. Patient denies difficulty voiding or passing bowel. Patient does report frequent episodes of passing gas. Patient compliant with discharge medication. Coordinator reviewed and discussed discharge medication list with patient . Patient compliant no questions or concerns at this time. Patient reports some discomfort but tolerable . Patient compliant with diet regimen . Patient is scheduled to see Nurse on 08/01/17 , Field Software Engineer on 08/11/17, Post OP with Dr. Bryant is scheduled for 08/11/17. Patient requested follow up with PCP , Coordinator scheduled patient with Dr. Funes on 07/31/17 at 11:15 am . At this time patient has no questions or concerns, aware to call in status changes. Oneil Funes [facility] 07/27/2017 12:56:50 07/31/2017 text/html Abdominal PainReported bypatient.Quality:ach ing; pt is s/p surgery for wt loss and she has healing scars on abd wall and notes pain w/ coughing and certain movements involving torso. This is all improving slowly. Onset/Timing:better Associated Symptoms:no fever;heartburnConsti pationReported bypatient.Duration:pr esent <1 month Contextno recent opiates; no history of chronic idiopathic constipation;recent surgery Alleviating Factors:stool softener Associated Symptoms:no blood in stool;weight loss (15 lbs)GERD RefluxReported bypatient.Symptomsno pain swallowing Severity:moderate Duration:present <1 month; worse after wt loss surgery Context:non-smoker; no drug/alcohol abuse Associated Symptoms:no feeling of fullness/mass in throat; no hoarsenessRhinitis/Si nusitis/Conjunctiviti s F/UReported bypatient.Severity:mo derate Symptoms:nasal congestion Triggers:tree;tempera ture change Medication Use:oral antihistamine; oral decongestant; due to her recent bariatric surgery pt can no longer use oral decongestant/ see plan Margy amos [facility] 07/31/2017 12:36:32 10/13/2017 text/html 37 year old fema le 3 months s/p gastric sleeve surgery c/o 2 day onset of L. upper buttock/hip pinching and burning pain. 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 Denies injury . Had similar pain right after the surgery , but went away and was not as prominent. Henri Fuller MD [address] [facility] [address], [place], [address], [facility] [place] 10/13/2017 15:03:32 OBGyn Episode No OBEpisode recorded.
[2024-10-29 17:45] LABS: MANUAL DIFF FLAG NO
[2024-10-29 17:58] LABS: Basophils Absolute Auto 0.1 X10*3/uL (0.0-0.2); Basophils Percent Auto 0.9 % (0-2); Eosinophils Absolute Auto 0.1 X10*3/uL (0.0-0.4); Eosinophils Percent Auto 1.5 % (0-4); Hematocrit 34.4 % (37.0-47.0); Hemoglobin 10.7 g/dl (12.0-16.0); Imm Gran Abs Auto 0.03 X10*3/uL (0.00-0.03); Imm Gran Pct Auto 0.4 % (0.0-0.4); Lymphocytes Absolute Auto 1.7 X10*3/uL (1.2-4.9); Lymphocytes Percent Auto 23.1 % (20-40); Mean Corpuscular HGB Conc 31.1 g/dl (31.0-35.0); Mean Corpuscular Hemoglobin 26.4 pg (27.0-33.0); Mean Corpuscular Volume 84.9 fL (80.0-98.0); Mean Platelet Volume 10.1 fL (9.4-12.3); Monocytes Absolute Auto 0.6 X10*3/uL (0.1-1.2); Monocytes Percent Auto 8.2 % (2-11); Neutrophils Absolute Auto 4.9 x10*3/uL (2.0-8.3); Neutrophils Percent Auto 65.9 % (45-73); Platelet Count 394 X10*3/uL (160-400); Red Blood Count 4.05 X10*6/uL (4.20-5.50); Red Cell Distribution Width 14.6 % (11.0-16.0); White Blood Count 7.4 X10*3/uL (4.8-10.8)
[2024-10-29 18:08] LABS: Alanine Aminotransferase 36 U/L (0-31); Albumin Level 3.6 g/dL (3.5-5.0); Alkaline Phosphatase 47 U/L (39-117); Aspartate Amino Transferase 35 U/L (5-31); Bilirubin Direct 0.1 mg/dL (0.0-0.5); Bilirubin Total 0.4 mg/dL (0.0-1.0); Total Protein 6.8 g/dL (6.5-8.0)
== END 2024-10-29 09:58 | disposition home or self-care (01) ==
LOC: HO.HKASLDS 09:57
PROVIDERS: Visit Provider Internal Medicine Rheumatology
DX: D64.9 Anemia, unspecified (principal); D75.839 Thrombocytosis, unspecified; R74.01 Elevation of levels of liver transaminase levels
CPT/HCPCS: 36415; 80076; 85025

== ENCOUNTER 2025-01-09 14:10 | Outpatient (AMB) | payer OTHER, SELFPAY ==
--- NOTE | 2025-01-09 14:13 | MHC.OFFVIS ---
Vital Signs 01/09/25 14:21 Height 5 ft 3 in Weight 219 lb 9.286 oz BMI 38.9 BP 130/82 Blood Pressure Location Lt brachial Position Sitting Pulse 92 Pulse Source Pulse Oximeter Pulse Oximetry (%) 98 Oxygen Delivery Method Room Air Intake Visit Reasons: follow up Intake Note: Patient presents for follow up. Allergies latex Allergy (Mild, Verified 01/09/25 14:17) Rash Tetracyclines Allergy (Verified 01/09/25 14:17) Unconscious HPI HPI follow up: Details: Joint symptoms resolved with prednisone course. She also felt great when she went to [place] on 2 occasions since last visit. Denies morning stiffness. She has a regular exercise program at home since she has implemented a home gym. Dry eyes is under control with multiple topical agents that patient has been taking prescribed by Dr. Silveira. She has not required use of Biotene products because her dry mouth has not been an issue in the last couple of months. Raynaud's is not active. [facility] Medical History (Updated 01/09/25 @ 14:55 by Chandler Jones MD) Sjogrens syndrome No known health problems Surgical History Bariatric surgery status Hx of LASIK Hx of breast reduction, elective Family History Mother Arthritis Social History Alcohol intake: current Comment: once weekly Patient Tobacco Use Status: Former Tobacco user Review of Systems Const All systems reviewed & are unremarkable except as noted in HPI and below Physical Exam Vital Signs: Last Vital Signs Pulse 92 01/09/25 14:21 BP 130/82 01/09/25 14:21 Pulse Ox 98 01/09/25 14:21 Oxygen Delivery Method Room Air 01/09/25 14:21 BMI result Body Mass Index 38.9 Const Other: General: Comfortable CVS: RRR Respiratory: clear to auscultation bilaterally. Good respiratory effort Skin: No lesions seen, no digital ulcerations. No discoloration of fingertips MSK: No tender joints. No synovitis. Normal range of motion of upper extremities and lower extremities. Assessment & Plan Assessment & Plan (1) Sjogrens syndrome: Comment: Inflammatory arthritis flare resolved with prednisone course. Sicca symptoms are controlled. She has chronic normocytic anemia, which I will be working up with additional labs to rule out hemolytic anemia and iron deficiency anemia with history of prior iron-deficiency anemia requiring supplementation. Chronic normocytic anemia may be related to chronic disease from Sjogren's syndrome. Rheumatology history: History of Sjogren syndrome with sicca symptoms, seronegative, confirmed on minor salivary gland biopsy and Raynaud's syndrome. Hydroxychloroquine started in 2020 due to fatigue, with benefit. She has had relapse of fatigue most recently with recent episode of inflammatory arthritis affecting left wrists. 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 We will treat current symptoms with a course of prednisone. If she has recurrence, we will consider treatment with leflunomide. I advised her against the use of NSAIDs due to history of bariatric surgery due to increased risk of GI side effects including gastric ulcers with NSAID use. She has a gastric sleeve. Code(s): M35.00 - Sjogren syndrome, unspecified Category: Medical Qualifiers: Sjogren organ or system involvement: inflammatory arthritis Qualified Code(s): M35.05 - Sjogren syndrome with inflammatory arthritis Plan: Continue hydroxychloroquine 400 mg daily. OCT and CF 04/2024. She will be following up with Dr. Silveira's office yearly for HCQ surveillance. She sees them every 6 months for glaucoma monitoring. Labs to assess drug monitoring on high-risk medication ordered Labs for Sjogren syndrome up-to-date 09/2024. Labs ordered for anemia workup Continue to follow-up with turner in Dr. Silveira for dry eye management. She is on 3 topical agents. Avoid oral NSAIDs in setting of bariatric surgery Return to clinic in 6 months or sooner if needed (2) Anemia: Comment: Chronic normocytic anemia with previous history of iron-deficiency anemia. Anemia of chronic disease from Sjogren syndrome could be a cause. I will workup for other etiologies such as hemolytic anemia with labs. Code(s): D64.9 - Anemia, unspecified Category: Medical Qualifiers: Anemia type: unspecified type Qualified Code(s): D64.9 - Anemia, unspecified Plan: Labs ordered Return to clinic in 6 months (3) Raynaud disease: Comment: Controlled with conservative management Code(s): I73.00 - Raynaud's syndrome without gangrene Category: Medical Qualifiers: Raynaud?s-associated gangrene presence: without gangrene Qualified Code(s): I73.00 - Raynaud's syndrome without gangrene Plan: Continue conservative management Orders: Orders Complete Blood Count Auto Diff Today Z79.60 - correction (current) use of unspecified immunomodulators and immunosuppressants C Reactive Protein Today Z79.899 - Other superintendent terminal (current) drug therapy Lactate Dehydrogenase Today D64.9 - Anemia, unspecified Haptoglobin Today D64.9 - Anemia, unspecified Direct Juan (NADIA) Today D64.9 - Anemia, unspecified Alanine Aminotransferase Today Z79.60 - correction (current) use of unspecified immunomodulators and immunosuppressants Aspartate Amino Transferase Today Z79.60 - correction (current) use of unspecified immunomodulators and immunosuppressants Creatinine Today Z79.60 - correction (current) use of unspecified immunomodulators and immunosuppressants Erythrocyte Sedimentation Rate Today Z79.899 - Other superintendent terminal (current) drug therapy Ferritin Today D64.9 - Anemia, unspecified IRON PROFILE Today D64.9 - Anemia, unspecified Medications: Discontinued prednisone Take 3 tablets daily 3 days, 2 tablets daily 3 days, 1 tablet daily 3 days then stop Discontinued Reason: Doctor's Order 5 mg PO DIRECTED 18 tabs 0RF Coding Level of Care Code Est Pt Level 4 (04606) Complex EM visit Add On G2211 Diagnoses Sjogren syndrome with inflammatory arthritis M35.05 Sjogren organ or system involvement: inflammatory arthritis Anemia, unspecified type D64.9 Anemia type: unspecified type Raynaud's disease without gangrene I73.00 Raynaud?s-associated gangrene presence: without gangrene
[2025-01-09 14:21] VITALS: BP 130/82; PULSE 92; O2SAT 98; BMI 38.9
--- OUTSIDE RECORDS SUMMARY | 2025-01-09 16:22 | XMS_ITS | Data Portability ---
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 Plan of Treatment Reminders Order Date Submit Date Provider Last Modified By Organization Details Last Modified Time Details Appointments None recorded. Lab lipid panel, serum 2016 017 MONY [facility], [address] [facility], [address], [place], [address], 7 20:17:25 Referral nutritionis t/dietitian referral 2016 017 [email or web address] Not available 7 13:58:08 physiatry referral - pt has chronic pain in neck//spasm in upper back/headac hes. pt feels she has lower extremity numbness and is concerned re cervical spinal stenosis. Pt tried PT few yrs ago and found no relief 2016 017 abigby [facility], [address] [facility], [address], [place], [address], 8 12:44:49 Procedures cerumen removal (PROC) 2016 017 MONY In-Office Order, Internal Use Only DO Not Attach Compendium DO Not Attach Compendium, Do Not Delete/merge, [id number] 7 10:54:44 Surgeries None recorded. Imaging None recorded. Medication Orders ranitidine 150 mg tablet 2016 017 [id number], [address] [place], [place], [id number], 8 13:54:08 Patient TargetsNo targets recorded. Patient Instructions Encounter Date Encounter Id Patient Instructions Last Modified By Organization Details Last Modified Time 06/15/2017 [id number] earwax blockage: care instructions [email or web address] Not available [...] care. 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 for Body mass index 40+ - severely obese Referring Physician: Oneil Penn, Internal Medicine, Encounter Date: 03/23/2017 Results Created Date Observation Date Name Description Value Unit Range Abnormal Flag Note LastModifiedBy Organization Detail LastModifiedTime 03/23/20 17 03/23/2017 CMP, serum or plasm a glucose 93 mg/dL (70-99 ) Not Available [facility] (Centralized Electronic Ordering - All Locations) Patient Can Go To The Location Of Their Choice, 03/23/2017 20:17:24 03/23/2003/23/2017 CMP, serum or plasm a BUN 12 mg/dL (6-20) Not Available [facility] (Centralized Electronic Ordering - All Locations) Patient Can Go To The Location Of Their Choice, 03/23/2017 20:17:03/23/2003/23/2017 CMP, serum or plasm a creatinine 0.8 mg/dL (0.5-1 .0) Not Available [facility] (Centralized Electronic Ordering - All Locations) Patient Can Go To The Location Of Their Choice, 03/23/2017 20:17:03/23/2003/23/2017 CMP, serum or plasm a sodium 139 mmol/ L (133-1 45) Not Available [facility] (Centralized Electronic Ordering - All Locations) Patient Can Go To The Location Of Their Choice, 03/23/2017 20:17:03/23/2003/23/2017 CMP, serum or plasm a potassium 4.0 mmol/ L (3.6-5 .2) Not Available [facility] (Centralized Electronic Ordering - All Locations) Patient Can Go To The Location Of Their Choice, 03/23/2017 20:17:03/23/2003/23/2017 CMP, serum or plasm a chloride 101 mmol/ L (98-10 7) Not Available [facility] (Centralized Electronic Ordering - All Locations) Patient Can Go To The Location Of Their Choice, 03/23/2017 20:17:03/23/2003/23/2017 CMP, serum or plasm a bicarbonate 24 mmol/ L (22-29 ) Not Available [facility] (Centralized Electronic Ordering - All Locations) Patient Can Go To The Location Of Their Choice, 03/23/2017 20:17:03/23/2003/23/2017 CMP, serum or plasm a anion gap 14 (4-17) Not Available [facility] (Centralized Electronic Ordering - All Locations) Patient Can Go To The Location Of Their Choice, 03/23/2017 20:17:03/23/2003/23/2017 CMP, serum or plasm a albumin 4.2 gm/dL (3.4-4 .8) Not Available [facility] (Centralized Electronic Ordering - All Locations) Patient Can Go To The Location Of Their Choice, 03/23/2017 20:17:03/23/2003/23/2017 CMP, serum or plasm a calcium 8.9 mg/dL (8.6-1 0.5) Not Available [facility] (Centralized Electronic Ordering - All Locations) Patient Can Go To The Location Of Their Choice, 03/23/2017 20:17:03/23/2003/23/2017 CMP, serum or plasm a bilirubin,to oumar 0.3 mg/dL (0-1.2 ) Not Available [facility] (Centralized Electronic Ordering - All Locations) Patient Can Go To The Location Of Their Choice, 03/23/2017 20:17:03/23/2003/23/2017 CMP, serum or plasm a total protein 6.8 gm/dL (6.2-8 .2) Not Available [facility] (Centralized Electronic Ordering - All Locations) Patient Can Go To The Location Of Their Choice, 03/23/2017 20:17:03/23/2003/23/2017 CMP, serum or plasm a Ag ratio 1.6 Not Available [facility] (Centralized Electronic Ordering - All Locations) Patient Can Go To The Location Of Their Choice, 03/23/2017 20:17:03/23/2003/23/2017 CMP, serum or plasm a AST 23 U/L (0-32) Not Available [facility] (Centralized Electronic Ordering - All Locations) Patient Can Go To The Location Of Their Choice, 03/23/2017 20:17:03/23/2003/23/2017 CMP, serum or plasm a alk phos 65 U/L (35-10 4) Not Available [facility] (Centralized Electronic Ordering - All Locations) Patient Can Go To The Location Of Their Choice, 03/23/2017 20:17:24 03/23/2003/23/2017 CMP, serum or plasm a ALT 17 U/L (0-33) Not Available [facility] (Centralized Electronic Ordering - All Locations) Patient Can Go To The Location Of Their Choice, 03/23/2017 20:17:24 03/23/2003/23/2017 CMP, serum or plasm a est GFR non 96 mL/mi n/1.7 3_M2 The CKD-E PI creat inine equat ion has not been valid ated in child jelena (<18 years ), pregn ant women , in some racia l or ethni c subgr oups other than Cauca sians and Afric an Ameri cans. Not Available [facility] (Centralized Electronic Ordering - All Locations) Patient Can Go To The Location Of Their Choice, 03/23/2017 20:17:24 03/23/2003/23/2017 CMP, serum or plasm a est GFR 111 mL/mi n/1.7 3_M2 The CKD-E PI creat inine equat ion has not been valid ated in child jelena (<18 years ), pregn ant women , in some racia l or ethni c subgr oups other than Cauca sians and Afric an Ameri cans. Not Available [facility] (Centralized Electronic Ordering - All Locations) Patient Can Go To The Location Of Their Choice, 03/23/2017 20:17:24 03/23/2003/23/2017 lipid panel , serum cholesterol, total 162 mg/dL (<200) Not Available [facility] (Centralized Electronic Ordering - All Locations) Patient Can Go To The Location Of Their Choice, 03/23/2017 20:17:25 03/23/2003/23/2017 lipid panel , serum triglyceride 89 mg/dL (<150) Not Available [facility] (Centralized Electronic Ordering - All Locations) Patient Can Go To The Location Of Their Choice, 03/23/2017 20:17:25 03/23/2003/23/2017 lipid panel , serum HDL chol 57 mg/dL (>39) Not Available [facility] (Centralized Electronic Ordering - All Locations) Patient Can Go To The Location Of Their Choice, 03/23/2017 20:17:25 03/23/2003/23/2017 lipid panel , serum LDL cholesterol, calculated 87 mg/dL (0-130 ) Not Available [facility] (Centralized Electronic Ordering - All Locations) Patient Can Go To The Location Of Their Choice, 03/23/2017 20:17:25 03/23/2003/23/2017 lipid panel , serum non HDL cholesterol (calc) 105 mg/dL (<160) Not Available [facility] (Centralized Electronic Ordering - All Locations) Patient Can Go To The Location Of Their Choice, [id number] 03/23/2017 20:17:25 Result Notes None recorded. Problems Name Problem SNOMED Code Status Onset Date Resolution Date Notes Provider Name and Address Organization Details Recorded Time Abnormal weight gain 239111116 Completed 201104/17/2014 RECORDED 05/30/20 12 8:37AM BY SAMRA RAPP MA, ANNOTATI ON/ADDEN DUM Oneil Librado'Alessan arvind null, [facility] 6 15:54:50 Otitis media 98734851 Completed 201104/17/2014 RECORDED 05/30/20 12 8:37AM BY SAMRA RAPP MA, ANNOTATI ON/ADDEN DUM Oneil Librado'Alessan arvind null, [facility] 6 15:54:50 Acute pharyngi tis 442502232 Completed 200704/17/2014 RECORDED 08/18/20 08 10:53AM BY IVORY MONTEMAYOR ON/ADDEN DUM Oneil Librado'Alessan arvind null, [facility] 6 15:54:50 Acute sinusiti s 55148550 Completed 201104/17/2014 RECORDED 05/30/20 12 8:37AM BY SAMRA RAPP MA, ANNOTATI ON/ADDEN DUM Oneil Librado'Alessan arvind null, [facility] 6 15:54:50 Asthma 482803057 Completed 201104/17/2014 IMPRESSI ON: LIKELY EXACERBA BHARATI BY URI/SINU SITIS. LUNGS SOUNDS GOOD TODAY; NO INDICATI ON FOR PREDNISO NE. CONTINUE WITH INHALERS DIRECTED .; RECORDED 05/30/20 12 8:37AM BY SAMRA RAPP MA, IVORY ON/ADDEN DUM Oneil Pavon'Alessan arvind null, [facility] 6 15:54:50 Candidal vulvovag initis 95484374 Completed 201104/17/2014 IMPRESSI ON: PT GETS FREQUENT VAGINITI S SECONDAR Y TO ABX USE. RX GIVEN FOR PT TO FILL IF SXS OCCUR.; RECORDED 05/30/20 12 8:37AM BY SAMRA RAPP MA, IVORY ON/ADDEN DUM Oneil D'Alessan arvind null, [facility] 6 15:54:50 Impacted cerumen 52534988 Completed 201104/17/2014 RECORDED 05/30/20 12 8:37AM BY SAMRA RAPP MA, GISELEATI ON/ADDEN DUM Oneil D'Alessan arvind null, [facility] 6 15:54:50 Cough 76801536 Completed 200804/17/2014 RECORDED 09/19/19 09 2:55PM BY ANDRE ARVIZU MA, IVORY ON/ADDEN DUM Oneil D'Alessan arvind null, [facility] 6 15:54:50 Dysuria 30259440 Completed 200704/17/2014 RECORDED 08/18/20 08 11:09AM BY IVORY MONTEMAYOR ON/ADDEN DUM Oneil D'Alessan arvind null, [facility] 6 15:54:50 Fever 546586991 Completed 200804/17/2014 RECORDED 09/19/19 09 2:55PM BY ANDRE ARVIZU MA, IVORY ON/ADDEN DUM Oneil D'Alessan arvind null, [facility] 6 15:54:50 General examinat ion of patient Completed 200704/17/2014 RECORDED 08/18/20 08 10:53AM BY IVORY MONTEMAYOR ON/ADDEN DUM Oneil D'Alessan arvind null, [facility] 6 15:54:50 Shoulder joint pain 542296997 Completed 201104/17/2014 RECORDED 05/30/20 12 8:37AM BY SAMRA RAPP MA, IVORY ON/ADDEN DUM Oneil samuels null, [facility] 6 15:54:50 Low back pain 517750731 Completed 201104/17/2014 IMPRESSI ON: MILD SCIATICA . NO SXS OF THIS FOR 2 DAYS; RECORDED 05/30/20 12 8:36AM BY SAMRA RAPP MA, ANNOTATI ON/[facility] Oneil samuels null, [facility] 6 15:54:50 Malaise and fatigue 366379734 Completed 201104/17/2014 RECORDED 05/30/20 12 8:37AM BY SAMRA RAPP MA, ANNOTATI ON/[facility] Oneil samuels null, [facility] 6 15:54:50 Active or passive immuniza tion Completed 200704/17/2014 RECORDED 08/18/20 08 10:53AM BY IVORY MONTEMAYOR ON/[facility] Oneil samuels null, [facility] 6 15:54:50 Influenz a vaccine needed [id number] 06 Completed 201304/17/2014 RECORDED 09/13/19 14 12:43PM BY SAMRA RAPP MA, ANNOTATI ON/[facility] Oneil samuels null, [facility] 6 15:54:50 Administ ration of bacteria l and viral vaccine Completed 200704/17/2014 RECORDED 08/18/20 08 11:07AM BY LUCAS CORONA, OFFICE VISIT Oneil samuels dandre, [facility] 6 15:54:50 Candidia sis of mouth 76157362 Completed 201104/17/2014 IMPRESSI ON: TREATED FOR THRUSH X 2 NOW, MOST RECENTLY NO BENEFIT FROM ORAL ANTIFUNG ALS. LAST EXAM BY MYSELF DID NOT SEEM ALL THAT CONSISTE NT WITH THRUSH, AT THIS POINT SHOULD BE SEEN BY ENT TO CONFIRM THE DX; RECORDED 05/30/20 12 8:36AM BY SAMRA RAPP MA, ANNOTATI ON/ADDEN DUM Oneil D'Alessan arvind null, [facility] 6 15:54:50 Chronic sinusiti s 05991930 Completed 201104/17/2014 RECORDED 05/30/20 12 8:36AM BY SAMRA RAPP MA, ANNOTATI ON/ADDEN DUM Oneil D'Alessan arvind null, [facility] 6 15:54:50 Viral disease 32317961 Completed 201104/17/2014 RECORDED 05/30/20 12 8:37AM BY SAMRA RAPP MA, ANNOTATI ON/ADDEN DUM Oneil D'Alessan arvind null, [facility] 6 15:54:50 Abnormal weight gain 220056869 Completed 201103/25/2014 RECORDED 05/30/20 12 8:37AM BY SAMRA RAPP MA, GISELEATI ON/ADDEN DUM Oneil D'Alessan arvind null, [facility] 6 15:54:50 Intestin al disaccha ridase deficien cy 69233409 Active 2013 Brittany amos, [facility] 7 13:06:03 Otitis media 23857641 Completed 201103/25/2014 RECORDED 05/30/20 12 8:37AM BY SAMRA RAPP MA, IVORY ON/ADDEN DUM Oneil D'Alessan arvind null, [facility] 6 15:54:50 Acute pharyngi tis 413364468 Completed 200703/25/2014 RECORDED 08/18/20 08 10:53AM BY GISELE MONTEMAYORATI ON/ADDEN DUM Oneil D'Alessan arvind null, [facility] 6 15:54:50 Acute sinusiti s 06634858 Completed 201103/25/2014 RECORDED 05/30/20 12 8:37AM BY SAMRA RAPP MA, ANNOTATI ON/ADDEN DUM Oneil D'Alessan arvind null, [facility] 6 15:54:50 Allergic rhinitis 26836559 Completed 201309/29/2016 RECORDED 01/18/20 14 3:12PM BY FAITH BRADFORD MA, OFFICE VISIT Brittanyavril De Dios MA dandre, [facility] 7 11:43:38 Alopecia 85144599 Active 2013 Brittany amos, [facility] 7 13:06:29 Anemia 181242338 Active 2013 Brittany amos, [facility] 7 13:06:12 Intrinsi c asthma 387505908 Active 2013 Brittany amos, [facility] 7 13:06:09 Intrinsi c asthma 975380228 Completed 200803/25/2014 RECORDED 09/19/19 09 2:55PM BY ANDRE ARVIZU MA, ANNOTATI ON/ADDEN DUM Brittanyavril De Dios MA dandre, [facility] 7 13:06:09 Asthma 563859527 Completed 201103/25/2014 IMPRESSI ON: LIKELY EXACERBA BHARATI BY URI/ENOCH KANG. LUNGS SOUNDS GOOD TODAY; NO INDICATI ON FOR PREDNISO NE. CONTINUE WITH INHALERS DIRECTED .; RECORDED 05/30/20 12 8:37AM BY SAMRA RAPP MA, ANNOTATI ON/ADDEN DUM Oneil amos, [facility] 6 15:54:50 Candidal vulvovag initis 90642841 Completed 201103/25/2014 IMPRESSI ON: PT GETS FREQUENT VAGINITI S SECONDAR Y TO ABX USE. RX GIVEN FOR PT TO FILL IF SXS OCCUR.; RECORDED 05/30/20 12 8:37AM BY SAMRA RAPP MA, ANNOTATI ON/ADDEN DUM Oneil samuels null, [facility] 6 15:54:50 Impacted cerumen 19198065 Completed 201103/25/2014 RECORDED 05/30/20 12 8:37AM BY SAMRA RAPP MA, ANNOTATI ON/ADDEN DUM Oneil D'Alessan arvind null, [facility] 6 15:54:50 Cough 14897071 Completed 200803/25/2014 RECORDED 09/19/19 09 2:55PM BY ANDRE ARVIZU MA, ANNOTATI ON/ADDEN DUM Oneil D'Alessan arvind null, [facility] 6 15:54:50 Dysuria 70937320 Completed 200703/25/2014 RECORDED 08/18/20 08 11:09AM BY LUCAS CORONA, ANNOTATI ON/ADDEN DUM Oneil D'Alessan arvind null, [facility] 6 15:54:50 Elevated blood-pr essure reading without diagnosi s of hyperten dk 309137941 Active 2013 Brittany amos, [facility] 7 13:06:16 Fever 458471120 Completed 200803/25/2014 RECORDED 09/19/19 09 2:55PM BY ANDRE ARVIZU MA, ANNOTATI ON/ADDEN DUM Oneil Librado'Alessan arvind null, [facility] 6 15:54:50 Tobacco user 987149025 Active 2013 Brittany amos, [facility] 7 13:05:57 History of clinical finding in subject 630730641 Completed 201309/29/2016 RECORDED 01/18/20 14 3:12PM BY FAITH BRADFORD MA, OFFICE VISIT Brittany amos, [facility] 7 11:43:31 Adult health examinat ion Completed 201309/29/2016 RECORDED 01/18/20 14 3:15PM BY FAITH BRADFORD MA, OFFICE VISIT Brittany amos, [facility] 7 11:43:22 General examinat ion of patient Completed 200703/25/2014 RECORDED 08/18/20 08 10:53AM BY GISELE MONTEMAYORATI ON/ADDEN DUM Oneil D'Alessan arvind null, [facility] 6 15:54:50 Hyperlip idemia 36181712 Active 2013 Brittany De Dios MA null, [facility] 7 13:06:23 Shoulder joint pain 075013914 Completed 201103/25/2014 RECORDED 05/30/20 12 8:37AM BY SAMRA RAPP MA, ANNOTATI ON/ADDEN DUM Oneil D'Alessan arvind null, [facility] 6 15:54:50 Low back pain 362947592 Completed 201103/25/2014 IMPRESSI ON: MILD SCIATICA . NO SXS OF THIS FOR 2 DAYS; RECORDED 05/30/20 12 8:36AM BY SAMRA RAPP MA, GISELEATI ON/ADDEN DUM Oneil D'Alessan arvind null, [facility] 6 15:54:50 Malaise and fatigue 544759759 Completed 201103/25/2014 RECORDED 05/30/20 12 8:37AM BY SAMRA RAPP MA, ANNOTATI ON/ADDEN DUM Oneil D'Alessan arvind null, [facility] 6 15:54:50 Migraine 73195086 Active 2013 Brittany De Dios MA null, [facility] 7 13:06:19 Migraine 63231321 Completed 201103/25/2014 RECORDED 12/01/19 12 8:11AM BY ANDRE ARVIZU MA, ANNOTATI ON/ADDEN DUM Brittany De Dios MA null, [facility] 7 13:06:19 Neck pain 79406582 Completed 201309/29/2016 IMPRESSI ON: IF NOT BETTER WITH PT, MAKE OV F/U; RECORDED 01/18/20 14 3:12PM BY FAITH BRADFORD MA, OFFICE VISIT Brittany amos, [facility] 7 11:43:42 Active or passive immuniza tion Completed 200703/25/2014 RECORDED 08/18/20 08 10:53AM BY IVORY MONTEMAYOR ON/[facility] Oneil amos, [facility] 6 15:54:50 Influenz a vaccine needed [id number] 06 Completed 201303/25/2014 RECORDED 09/13/19 14 12:43PM BY SAMRA RAPP MA, ANNOTATI ON/[facility] Oneil amos, [facility] 6 15:54:50 Administ ration of bacteria l and viral vaccine Completed 200703/25/2014 RECORDED 08/18/20 08 11:07AM BY LUCAS CORONA, OFFICE VISIT Oneil amos [facility] 6 15:54:50 Morbid obesity 095026576 Active 2013 Brittany amos, [facility] 7 13:06:06 Candidia sis of mouth 71256480 Completed 201103/25/2014 IMPRESSI ON: TREATED FOR THRUSH X 2 NOW, MOST RECENTLY NO BENEFIT FROM ORAL ANTIFUNG ALS. LAST EXAM BY MYSELF DID NOT SEEM ALL THAT CONSISTE NT WITH THRUSH, AT THIS POINT SHOULD BE SEEN BY ENT TO CONFIRM THE DX; RECORDED 05/30/20 12 8:36AM BY SAMRA RAPP MA, IVORY ON/[facility] Oneil amos, [facility] 6 15:54:50 Raynaud' s disease 778398801 Active 2013 Brittany amos, [facility] 7 13:05:59 Adult health examinat ion Completed 201103/25/2014 RECORDED 05/30/20 12 8:37AM BY SAMRA RAPP MA, ANNOTATI ON/ADDEN DUM Brittany De Dios MA null, [facility] 7 11:43:22 Chronic sinusiti s 47092957 Completed 201103/25/2014 RECORDED 05/30/20 12 8:36AM BY SAMRA RAPP MA, ANNOTATI ON/ADDEN DUM Oneil D'Alessan arvind null, [facility] 6 15:54:50 Viral disease 91665391 Completed 201103/25/2014 RECORDED 05/30/20 12 8:37AM BY SAMRA RAPP MA, ANNOTATI ON/ADDEN DUM Oneil D'Alessan arvind null, [facility] 6 15:54:49 Abnormal weight gain 475398973 Completed 201104/18/2014 RECORDED 05/30/20 12 8:37AM BY SAMRA RAPP MA, ANNOTATI ON/ADDEN DUM Oneil D'Alessan arvind null, [facility] 6 15:54:50 Otitis media 78912074 Completed 201104/18/2014 RECORDED 05/30/20 12 8:37AM BY SAMRA RAPP MA, ANNOTATI ON/ADDEN DUM Oneil D'Alessan arvind null, [facility] 6 15:54:50 Acute pharyngi tis 696650696 Completed 200704/18/2014 RECORDED 08/18/20 08 10:53AM BY LUCAS CORONA, GISELEATI ON/ADDEN DUM Oneil D'Alessan arvind null, [facility] 6 15:54:50 Acute sinusiti s 81160136 Completed 201104/18/2014 RECORDED 05/30/20 12 8:37AM BY SAMRA RAPP MA, ANNOTATI ON/ADDEN DUM Oneil D'Alessan arvind null, [facility] 6 15:54:50 Asthma 842086555 Completed 201104/18/2014 IMPRESSI ON: LIKELY EXACERBA BHARATI BY URI/SINU SITIS. LUNGS SOUNDS GOOD TODAY; NO INDICATI ON FOR PREDNISO NE. CONTINUE WITH INHALERS DIRECTED .; RECORDED 05/30/20 12 8:37AM BY SAMRA RAPP MA, IVORY ON/ADDEN DUM Oneil D'Alessan arvind null, [facility] 6 15:54:50 Candidal vulvovag initis 43951691 Completed 201104/18/2014 IMPRESSI ON: PT GETS FREQUENT VAGINITI S SECONDAR Y TO ABX USE. RX GIVEN FOR PT TO FILL IF SXS OCCUR.; RECORDED 05/30/20 12 8:37AM BY SAMRA RAPP MA, IVORY ON/ADDEN DUM Oneil Librado'Alessan arvind null, [facility] 6 15:54:50 Impacted cerumen 95109735 Completed 201104/18/2014 RECORDED 05/30/20 12 8:37AM BY SAMRA RAPP MA, IVORY ON/ADDEN DUM Oneil D'Alessan arvind null, [facility] 6 15:54:50 Cough 71027684 Completed 200804/18/2014 RECORDED 09/19/19 09 2:55PM BY ANDRE ARVIZU MA, ANNOTATI ON/ADDEN DUM Oneil Librado'Alessan arvind null, [facility] 6 15:54:50 Dysuria 26345298 Completed 200704/18/2014 RECORDED 08/18/20 08 11:09AM BY IVORY MONTEMAYOR ON/ADDEN DUM Oneil Librado'Alessan arvind null, [facility] 6 15:54:50 Fever 767908589 Completed 200804/18/2014 RECORDED 09/19/19 09 2:55PM BY ANDRE ARVIZU MA, IVORY ON/ADDEN DUM Oneil Librado'Alessan arvind null, [facility] 6 15:54:50 General examinat ion of patient Completed 200704/18/2014 RECORDED 08/18/20 08 10:53AM BY IVORY MONTEMAYOR ON/JUAN DAVID samuels null, [facility] 6 15:54:50 Shoulder joint pain 775205694 Completed 201104/18/2014 RECORDED 05/30/20 12 8:37AM BY SAMRA RAPP MA, ANNOTATI ON/ADDYAS Hung arvind null, [facility] 6 15:54:50 Low back pain 050623565 Completed 201104/18/2014 IMPRESSI ON: MILD SCIATICA . NO SXS OF THIS FOR 2 DAYS; RECORDED 05/30/20 12 8:36AM BY SAMRA RAPP MA, ANNOTATI ON/JUAN DAVID Hung arvind null, [facility] 6 15:54:50 Malaise and fatigue 310846402 Completed 201104/18/2014 RECORDED 05/30/20 12 8:37AM BY SAMRA RAPP MA, ANNOTATI ON/JUAN DAVID amos, [facility] 6 15:54:50 Active or passive immuniza tion Completed 200704/18/2014 RECORDED 08/18/20 08 10:53AM BY IVORY MONTEMAYOR/JUAN DAVID amos, [facility] 6 15:54:50 Influenz a vaccine needed [id number] 06 Completed 201304/18/2014 RECORDED 09/13/19 14 12:43PM BY SAMRA RAPP MA, ANNOTATI ON/JUAN DAVID amos, [facility] 6 15:54:50 Administ ration of bacteria l and viral vaccine Completed 200704/18/2014 RECORDED 08/18/20 08 11:07AM BY LUCAS CORONA, OFFICE VISIT Oneil amos, [facility] 6 15:54:50 Candidia sis of mouth 32029934 Completed 201104/18/2014 IMPRESSI ON: TREATED FOR THRUSH X 2 NOW, MOST RECENTLY NO BENEFIT FROM ORAL ANTIFUNG ALS. LAST EXAM BY MYSELF DID NOT SEEM ALL THAT CONSISTE NT WITH THRUSH, AT THIS POINT SHOULD BE SEEN BY ENT TO CONFIRM THE DX; RECORDED 05/30/20 12 8:36AM BY SAM[facility] RAPP [facility] 6 15:54:50 Chronic sinusiti s 56020149 Completed 201104/18/2014 RECORDED 05/30/20 12 8:36AM BY SAMRA RAPP [facility], [facility] 6 15:54:50 Viral disease 88770778 Completed 201104/18/2014 RECORDED 05/30/20 12 8:37AM BY SAMRA RAPP MA, GISELEATI ON/[facility] Oneil amos [facility] 6 15:54:50 Body mass index 30+ - obesity 597463039 Active Oneil amos [facility] 6 15:54:50 Sleep disorder 78942098 Active Oneil amos [facility] 6 16:17:59 Change in skin lesion 503151786 Completed 09/29/2016 Brittany amos [facility] 7 11:43:34 Knee pain Active 2016 Margy amos [facility] 7 13:11:22 Allergic conjunct ivitis 669053865 Active 2016 Oneil amos [facility] 7 20:34:35 Problem Notes None recorded. Procedures Surgical History Date Name Laterality Status Provider Name and Address Organization Details Recorded Time 8 Date of Last Pap Smear completed Roberta Ga [facility] 11/28/2017 15:23:37 7 Eye Surgery completed Brittany De Dios MA [facility] 09/29/2016 11:54:41 7 Breast Surgery completed Brittanyavril De Dios MA [facility] 02/11/2016 15:13:40 0 Orthopedic Surgery completed Brittanyavril De Dios MA [facility] 02/11/2016 15:13:56 Imaging Results None recorded. Procedure Notes None recorded. Medical Equipment None Reported. Allergies Allergen ID Allergen Name Allergen Category Reaction Reaction Severity Criticality Documentation Date Start Date Code Code System Note Provider Name and Address Organization Details Recorded Time 764 latex environme nt,medica tion Not available Not available Not available 03/25/20142013 18663 91 [facility] 13:05[facility]44 765 Medicinal product containin g tetracycl ine structure and acting as antibacte rial agent (product) medicatio n Not available Not available Not available 03/25/20142013 54275 1004 [facility]ED [facility] 13:05:48 Medications Name Sig Start Date [...] Available Not Available Not Available Hycodan (with homatropi ne) 5 mg-1.5 mg tablet TID/PRN 09/27 [...] completed RECORDED 10/30/19 09 3:32PM BY ONEIL SAMUELS MD, ANNOTATI ON/JUAN DAVID DUM; Not Available [...] ne-homatr opine 5 mg-1.5 mg/5 mL oral solution TID/PRN 02/10 completed Not Available Not Available [...] Updated DateTime 7 161.925 cm 43.8 kg/m2 388930. 27 g 98.6 [degF] 97 % 97 % 103 /min 119 mm[Hg] 79 mm[Hg] Brittany [facility] 7 13:14:29 Date Recorded Body height Oxygen saturation Oxygen saturation in Arterial blood by Pulse oximetry Heart rate Body mass index (BMI) Body weight Body temperature Systolic blood pressure Diastolic blood pressure Provider Name and Address Organization Details Last Updated DateTime 7 161.925 cm 100 % 100 % 75 /min 43.9 kg/m2 523174. 67 g 98.1 [degF] 119 mm[Hg] 84 mm[Hg] [facility] 7 10:24:25 Date Recorded Body height Body mass index (BMI) Body weight Heart rate Oxygen saturation Oxygen saturation in Arterial blood by Pulse oximetry Systolic blood pressure Diastolic blood pressure Provider Name and Address Organization Details Last Updated DateTime 7 161.925 cm 40.9 kg/m2 700773. 6 g 84 /min 98 % 98 % 110 mm[Hg] 84 mm[Hg] Brittany De Dios [facility] 7 11:02:49 Date Recorded Body height Body mass index (BMI) Body weight Body temperature Heart rate Oxygen saturation Oxygen saturation in Arterial blood by Pulse oximetry Systolic blood pressure Diastolic blood pressure Provider Name and Address Organization Details Last Updated DateTime 8 161.925 cm 36 kg/m2 21205.2 1 g 97.8 [degF] 92 /min 99 % 99 % 117 mm[Hg] 88 mm[Hg] Dinorah Scott [facility] 8 13:52:46 Social History Question Answer Notes LastModified by Organizat ion Details LastModified Time Tobacco Smoking Status Former Smoker Samra amos [facility] 01/30/2015 14:22:32 Do You Have An Advance [...] Functional Status Question Answer Note LastModified by [employer] ion Details LastModified Time Are you able [...] 14:52:01 Medical History Condition Response Obesity Y Headaches Y Anemia Y Gynecological History Statement/Question Response Date of Last Pap Smear 11/08/2017 Obstetrics History GPAL:G 0 P 0 0 0 0 Immunizations Vaccine Type Date Status Note Provider Nam e and Address Organization Details Recorded Time Influenza, split virus, trivalent, preservative 7 completed Not Available [facility] 03/25/2014 13:24:16 pneumococcal polysaccharide PPV23 8 completed Not Available [facility] 03/25/2014 13:24:16 Influenza, split virus, trivalent, preservative 8 completed Not Available [facility] 03/25/2014 13:24:16 Tdap 8 completed Not Available [facility] 03/25/2014 13:24:16 Past Encounters Encounter ID Performer Location Encounter Start Date Encounter Closed Date Diagnosis/Indication Diagnosis SNOMED-CT Code Diagnosis ICD10 Code Diagnosis Note [id number] auto[facility]Comm erce [address] [facility],[address] [place] [address] 02/20/2007 00:00:00 [id number] autoEComm erce [address] [facility],[address] [place] [address] 10/16/2006 00:00:00 [id number] autoEComm erce [address] [facility],[address] [place] [address] 07/23/2007 00:00:00 [id number] autoEComm erce [address] [facility],[address] [place] [address] 09/17/2007 00:00:00 [id number] autoEComm erce [address] [facility],[address] [place] [address] 09/20/2007 00:00:00 [id number] autoEComm erce [address] [facility],[address] [place] [address] 10/18/2007 00:00:00 [id number] autoEComm erce [address] [facility],[address] [place] [address] 11/15/2007 00:00:00 [id number] autoEComm erce [address] [facility],[address] [place] [address] 12/31/2007 00:00:00 [id number] autoEComm erce [address] [facility],[address] [place] [address] 02/09/2008 00:00:00 [id number] [place] [address] 08/18/2008 00:00:00 [id number] auto[address]Comm erce [address] [place] [address] 09/19/2008 00:00:00 [id number] auto[address]Comm erce [address] [place] [address] 06/16/2009 00:00:00 [id number] autoEComm erce [address] [facility] [address] [place] [address] 07/14/2009 00:00:00 [id number] autoEComm erce [address] [facility] [address] [place] [address] 08/15/2009 00:00:00 [id number] autoEComm erce [address] [facility],[address] [place] [address] 09/09/2010 00:00:00 [id number] autoEComm erce [address] [facility],[address] [place] [address] 10/21/2010 00:00:00 [id number] autoEComm erce [address] [facility] [address] [place] [address] 01/29/2011 00:00:00 [id number] autoEComm erce [address] [facility],[address] [place] [address] 03/22/2011 00:00:00 [id number] autoEComm erce [address] [place] [address] 03/23/2011 00:00:00 [id number] autoEComm erce [address] [facility] [address] [place] [address] 03/25/2011 00:00:00 [id number] autoEComm erce [address] [facility],[address] [place] [address] 04/26/2011 00:00:00 [id number] autoEComm erce [address] [place] [address] 09/29/2011 00:00:00 [id number] auto[address]Comm erce [address] [place] [address] 12/01/2011 00:00:00 [id number] auto[address]Comm erce [address] [place] [address] 01/23/2012 00:00:00 [id number] [address]Comm er[address] [place] [address] 05/30/2012 00:00:00 [id number] autoEComm erce [address] [place] [address] 09/13/2013 00:00:00 [id number] autoEComm erce [address] [facility],[address] [place] [address] 01/17/2014 00:00:00 [id number] Oneil schmidt MD Main Office [address] [facility] [address], [place] [address] 01/30/2015 14:11:46 01/30/2015 15:17:57 Adult health examination 567247860 Body mass index 30+ - obesity 955118397 Sleep disorder 28120424 Migraine 62693284 pt rommel north uses fiorcet /she has mixed headaches/ work stress and migraines [id number] Oneil schmidt MD Main Office [address] [facility] [address], [place] [address] 02/11/2016 14:50:31 02/11/2016 16:21:09 Adult health examination 615779063 Z00.00 lipid levels done in 2013-low risk Change in skin lesion 39 2187555 L98.9 Sleep disorder 27654016 G47.9 pt saw sleep medicine office in [place]/ FUNMI Espino prescribes trazadone 100 mg qhs Allergic rhinitis 950627 04 J30.9 [id number] Oneil schmidt MD Main Office [address] [facility] [address], [place] [address] 09/29/2016 11:19:21 09/29/2016 12:34:48 Body mass index 40+ - severely obese 645713510 Z68.41 E66.01 pt strongly considerin g wt loss surgery. she has been doing significan t efforts re wt loss for many years. Knee pain 72524914 M25.5 61 M25.562 Insomnia 093012622 G47.0 0 [id number] Oneil schmidt MD Main Office [address] [facility] [address] [place] [address] 03/23/2017 13:01:57 03/23/2017 13:58:08 Adult health examination 067159295 Z00.00 lipid levels done in 2013-low risk Neck pain 28745562 M54.2 Body mass index 40+ - severely obese 331175680 Z68.41 E66.01 pt strongly considerin g wt loss surgery. she has been doing significan t efforts re wt loss for many years. [id number] Matthew Hernandez PA-C Main Office [address] [address] 06/15/2017 10:16:38 06/15/2017 10:52:48 Impacted cerumen 72794749 H61.23 [id number] Oneil schmidt MD Main Office [address] [address] 07/27/2017 10:10:57 07/27/2017 12:56:52 [id number] Oneil schmidt MD Main Office [address] [facility] [address] [place] [address] 07/31/2017 10:49:19 07/31/2017 12:30:22 Abdominal wall pain 531045013 R10.9 pt having appropriat e post op f/u appts Constipation 79688208 K5 9.00 stool softeners/ add miralax Gastroesop hageal reflux disease 946301098 K21.9 pt will use PPI per surgery and next year try to wean to H2 blockers Allergic rhinitis 349428 04 J30.9 cont nasal steroids and anthihista mines [id number] Abbie Hernandez PA-C Main Office [address] [facility] [address] [place] [address] 10/13/2017 13:44:11 10/13/2017 14:19:02 Spasm of back muscles 889703657 M62.830 Pt. might be having beginning of [...] [place] Member ID Guarantor Name 03/23/2017 1 [facility]) [id number] Christopher Lucas [id number] 2 Mikhail Juanam 06/15/2017 1 [facility]) [id number] Christopher Lucas [id number] 2 Christrhonda Juanam 07/27/2017 1 [facility]) [id number] Christopher Lucas [id number] 2 Christrhonda Juanam 07/31/2017 1 [facility] ([facility] [id number] Christopher Lucas [id number] 2 Christcater Lucas 10/13/2017 1 [facility] ([facility]) [id number] Christopher Lucas [id number] 2 Mikhali Zavala Notes Date Note Type Note Provider Name and Address Organization Details Recorded Time 06/15/2017 text/html EaracheReported bypatient.Location:[facility] Quality:throbbing Severity:continuous (getting worse over past few days) Context:no sick contacts; no recent swimming/water in ear; + h/o cerumen impaction few yrs ago, no use of qtips or debrox Modifying Factors:does not hurt to lie on, or pull on ear; nothing gives relief Associated Symptoms:no discharge from the ears; no ringing in the ears;hearing loss(R>>L) Oneil amos [facility] 06/15/2017 12:39:35 07/27/2017 text/html Hospitalization Contact RecordReported bypatient.[facility]; admit date: (Please enter in format 'MM/DD/YYYY') [...] guideline s of new diet regimen per Kindergarten Prep Teacher. Store Gift Wrap Associate ONEYDA call to patient regarding discharge status [...] scheduled to see Nurse on 08/01/17 , Kindergarten Prep Teacher on 08/11/17, Post OP with Dr. Bryant is scheduled for 08/11/17. Patient requested follow up with PCP , Coordinator scheduled patient with Dr. Funes on 07/31/17 at 11:15 am . At this time patient has no questions or concerns, aware to call in status changes. Oneil Funes [facility] 07/27/2017 12:56:50 07/31/2017 text/html Abdominal PainReported bypatient.Quality:ach [...] use oral decongestant/ see plan Margy amos [facility] 07/31/2017 12:36:32 10/13/2017 text/html 37 year old fema le 3 months s/p gastric sleeve surgery c/o 2 day onset of L. upper buttock/hip pinching and burning pain. 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 Denies injury . Had similar pain right after the surgery , but went away and was not as prominent. Henri Fuller MD [address] [address], [place], [address], [facility] 10/13/2017 15:03:32 OBGyn Episode No OBEpisode recorded.
== END 2025-01-09 14:47 | disposition home or self-care (01) ==
LOC: HO.RHES 14:10
PROVIDERS: PCP Family Medicine; Visit Provider Internal Medicine Rheumatology
DX: M35.05 Sjogren syndrome with inflammatory arthritis (principal); D64.9 Anemia, unspecified; I73.00 Raynaud's syndrome without gangrene
CPT/HCPCS: 99214

== ENCOUNTER 2025-01-09 14:10 | Outpatient (REF) | payer OTHER, SELFPAY ==
[2025-01-09 17:47] LABS: MANUAL DIFF FLAG NO
[2025-01-09 17:59] LABS: Basophils Absolute Auto 0.1 X10*3/uL (0.0-0.2); Basophils Percent Auto 0.9 % (0-2); Eosinophils Absolute Auto 0.1 X10*3/uL (0.0-0.4); Eosinophils Percent Auto 1.3 % (0-4); Hematocrit 34.3 % (37.0-47.0); Hemoglobin 10.8 g/dl (12.0-16.0); Imm Gran Abs Auto 0.03 X10*3/uL (0.00-0.03); Imm Gran Pct Auto 0.4 % (0.0-0.4); Lymphocytes Percent Auto 23.3 % (20-40); Mean Corpuscular HGB Conc 31.5 g/dl (31.0-35.0); Mean Corpuscular Hemoglobin 25.2 pg (27.0-33.0); Mean Corpuscular Volume 80.1 fL (80.0-98.0); Monocytes Absolute Auto 0.6 X10*3/uL (0.1-1.2); Monocytes Percent Auto 7.1 % (2-11); Neutrophils Absolute Auto 5.7 x10*3/uL (2.0-8.3); Platelet Count 433 X10*3/uL (160-400); Red Blood Count 4.28 X10*6/uL (4.20-5.50); Red Cell Distribution Width 15.9 % (11.0-16.0); White Blood Count 8.5 X10*3/uL (4.8-10.8)
[2025-01-09 18:06] LABS: Haptoglobin 193 mg/dL (35-250)
[2025-01-09 18:11] LABS: Alanine Aminotransferase 24 U/L (0-31); Alkaline Phosphatase 57 U/L (39-117); Aspartate Amino Transferase 32 U/L (5-31); Bilirubin Direct 0.2 mg/dL (0.0-0.5); Bilirubin Total 0.4 mg/dL (0.0-1.0); Estimated Glomerular Filt Rate > 60; Iron 19 mcg/dL (30-160); Lactate Dehydrogenase 259 U/L (122-220); Percent Iron Saturation 5 % (15-50); Total Iron Binding Capacity 352 mcg/dL (228-428); Total Protein 7.2 g/dL (6.5-8.0); Unsaturated Iron Binding 333 ug/dL
[2025-01-09 18:29] LABS: Ferritin 16 ng/mL (10-250)
[2025-01-09 18:51] LABS: Erythrocyte Sedimentation Rate 19 MM/HR (0-20)
== END 2025-01-09 14:11 | disposition home or self-care (01) ==
LOC: HO.HKASLDS 14:10
PROVIDERS: PCP Family Medicine; Visit Provider Internal Medicine Rheumatology
DX: M35.05 Sjogren syndrome with inflammatory arthritis (principal); D64.9 Anemia, unspecified; I73.00 Raynaud's syndrome without gangrene; Z79.899 Other long term (current) drug therapy; Z79.60 Long term (current) use of unspecified immunomodulators and immunosuppressants
CPT/HCPCS: 36415; 80076; 82565; 82728; 83010; 83540; 83615; 85025; 85652; 86140; 86880

== ENCOUNTER 2025-07-15 09:59 | Outpatient (AMB) | payer OTHER, SELFPAY ==
--- OUTSIDE RECORDS SUMMARY | 2021-06-24 10:23 | XMS_ITS | Encounter Summary ---
Author Organization [facility] Address [address] [facility] [address] [place] [id number] Phone Care Team Providers Care Linseed Oil Temperer Name Role Phone Jasvir Weir MD Primary Care Provider [phone] Encounter Details Date Type Department Care Team (Late st Contact Info) Description 06/24/2021 11:23 AM EDT Hospital Encounter [facility] [address] [place] [phone] Carolin Mireles PA [address] [address] [email or web address] Social History Tobacco Use Types Packs/Day Years Used Date Smoking Tobacco: Former Smokeless Tobacco: Never Education Answer Date Recorded Are you interested in more education? Not on britt e 01/06/2023 Are you concerned about learning? Not on file 01/06/2023 No 01/06/2023 No 01/06/2023 Digital Access Answer Date Recorded No 02/06/2023 No 02/06/2023 Reliable internet access at home? Not on file 02/06/2023 Device with a working camera? Not on file Intimate Partner Violence Answer Date R ecorded Are you denied basic needs s uch as food, clothing, or medical care? No 02/12/2024 In the past 12 months have y ou been in a relationship with a person who hurts, threatens, or tries to control you? No 02/12/2024 Are you denied basic needs s uch as food, clothing, or medical care? No 02/12/2024 In the past 12 months have y ou been in a relationship with a person who hurts, threatens, or tries to control you? No 02/12/2024 Comments Unknown Sex and Gender Information Value Date Recorded Sex Assigned at Female 02/12/2024 4:02 PM EDT Legal Sex Female 9:19 PM EDT Gender Identity Female 02/12/2024 4:02 PM EDT Sexual Orientation Straight 02/12/2024 4: 02 PM EDT documented as of this encounter Functional Status * Calculated C-SSRS Risk Score (Lifetime/Recent) Answer Date of Assessment Author No Risk Indicated 02/12/2024 4:02 PM EDT Marely Manzano RN * [place] Suicide Severity Rating Scale (Screener/Recent Self-Report) Question Answer Date of Assessment Author 1. Wish to be (Past 1 Month) No 024 4:02 PM EDT Marely Menendez RN 2. Non-Specific Active Suici chaparro Thoughts (Past 1 Month) No 02/12/2024 4:02 PM EDT Marely Menendez RN 6. Suicidal Behavior (Lifetime) No 4:02 PM EDT Marely Menendez RN documented as of this encounter Plan of Treatment Not on file documented as of this encounter Procedures Procedure Name Priority Date/Time Associated Diagnosis Comments XR CHEST PA AND LATERAL 2 VIEWS Urgent/patient waiting 06/24/2021 11:33 AM EDT Acute upper respiratory infection documented in this encounter Results * XR CHEST PA AND LATERAL 2 VIEWS (06/24/2021 11:33 AM EDT) Anatomical Region Laterality Modality Chest Computed Radiogr aphy 06/24/2021 11:3 6 AM EDT Impressions 06/24/2021 11:46 AM EDT No acute abnormality. ATTESTATION: I, Armida Jackson as teaching physician, have reviewed the images for this case and if necessary edited the report originally created by Shellie Gregory. Narrative 06/24/2021 11:46 AM EDT XR CHEST PA AND LATERAL 2 VIEWS COMPARISON: None. FINDINGS: Devices/Tubes/Lines: None. Lungs: The lungs are clear. No focal consolidation or pulmonary edema. Pleura: No pleural effusion or pneumothorax. Heart/Mediastinum: The heart and mediastinum are normal. Bones/Soft Tissues: No significant skeletal abnormality. Procedure Note Armida Jackson MD - 06/24/2021 XR CHEST PA AND LATERAL 2 VIEWS COMPARISON: None. FINDINGS: Devices/Tubes/Lines: None. Lungs: The lungs are clear. No focal consolidation or pulmonary edema. Pleura: No pleural effusion or pneumothorax. Heart/Mediastinum: The heart and mediastinum are normal. Bones/Soft Tissues: No significant skeletal abnormality. IMPRESSION: No acute abnormality. ATTESTATION: I, Armida Jackson as teaching physician, have reviewed theimages for this case and if necessary edited the report originally createdby Shellie Gregory. Carolin PRETTY IMG XR CHEST Final Result documented in this encounter Visit Diagnoses Not on filedocumented in this encounter Additional Health Concerns Infection Onset Date Last Indicated Resolved Time CoV-Risk 06/24/2021 06/24/2021 07/04/2021 1:22 AM EDT CoV-Risk 10/04/2021 10/04/2021 10/05/2021 9:21 PM EST COVID-19 10/04/2021 10/04/2021 10/25/2021 1:22 AM EST CoV-Risk 06/17/2022 06/17/2022 06/28/2022 1:22 AM EDT CoV-Risk 11/24/2022 11/24/2022 12/05/2022 1:22 AM EDT documented as of this encounter Care Teams Linseed Oil Temperer Relationship Specialty Start Date End Date Jasvir Weir MD [email or web address] PCP - General Family Medicine 11/20/18 02/11/24 documented as of this encounter Additional Source Comments The information contained in this document represents components of the legal health record. It is not the complete legal health record.[facility]
[2025-07-15 10:12] VITALS: BP 120/80; PULSE 89; O2SAT 97; BMI 35.1
--- NOTE | 2025-07-15 10:12 | A.OFFVIS_ITS ---
Vital Signs 07/15/25 10:12 Height 5 ft 3 in Weight 198 lb 3.129 oz BMI 35.1 BP 120/80 Blood Pressure Location Lt brachial Position Sitting Pulse 89 Pulse Source Pulse Oximeter Pulse Oximetry (%) 97 Oxygen Delivery Method Room Air Intake Visit Reasons: 6 months Intake Note: Patient presents today for a Sjogren syndrome follow up. Accompanied by: Self / Same As Patient Allergies latex Allergy (Mild, Verified 07/15/25 10:14) Rash Tetracyclines Allergy (Verified 07/15/25 10:14) Unconscious HPI HPI 6 months: Details: She had dry eyes worsened during the summer. Meibo drops prescribed by her friend optomotrist helped. Biotene losenges and gel helps with dry mouth but she constantly drinks water including in the evening, which results in nocturia. Cold weather is causing more neck pain. She is getting massages monthly. She uses Tylenol and ibuprofen when pain is intense. She use a roll-on lidocaine along with patches. She feels that her muscles are tight. Increase activity with computer can cause increase pain but tolerable. No raynauds. No new joint swelling. [facility], [facility] Medical History Sjogrens syndrome No known health problems Surgical History Bariatric surgery status Hx of LASIK Hx of breast reduction, elective Family History Mother Arthritis Social History Alcohol intake: current Comment: once weekly Patient Tobacco Use Status: Former Tobacco user Physical Exam Vital Signs: Last Vital Signs Pulse 89 07/15/25 10:12 BP 120/80 07/15/25 10:12 Pulse Ox 97 07/15/25 10:12 Oxygen Delivery Method Room Air 07/15/25 10:12 BMI result Body Mass Index 35.1 Const Other: General: Comfortable CVS: RRR Respiratory: clear to auscultation bilaterally. Good respiratory effort Skin: No lesions seen, no digital ulcerations. No discoloration of fingertips MSK: No tender joints. No synovitis. Normal range of motion of upper extremities and lower extremities. No spinous process tenderness. Tender to palpate bilateral trapezius. Normal range of motion of cervical spine. Assessment & Plan Assessment & Plan (1) Sjogrens syndrome: Comment: Inflammatory arthritis is controlled on hydroxychloroquine. Sicca symptoms have not been controlled but she has found relief with using Meibo drops with her dry eye symptoms. We discussed options for dry mouth. She is willing to consider trying pilocarpine. Discussed side effects and monitoring. Rheumatology history: History of Sjogren syndrome with sicca symptoms, seronegative, confirmed on minor salivary gland biopsy and Raynaud's syndrome. Hydroxychloroquine started in 2020 due to fatigue, with benefit. She has had relapse of fatigue most recently with recent episode of inflammatory arthritis affecting left wrists. She has developed Sjogren syndrome related inflammatory arthritis on hydroxychloroquine resolved with a course of prednisone. If she has recurrence, I will consider treatment with leflunomide. I advised her against the use of NSAIDs due to history of bariatric surgery due to increased risk of GI side effects including gastric ulcers with NSAID use. She has a gastric sleeve. Code(s): M35.00 - Sjogren syndrome, unspecified Category: Medical Qualifiers: Sjogren organ or system involvement: inflammatory arthritis Qualified Code(s): M35.05 - Sjogren syndrome with inflammatory arthritis Plan: Continue hydroxychloroquine 400 mg daily. JUN and CF 04/2024. Requesting recent eye exam. Start pilocarpine 5 mg b.i.d. She will call office if she has not found benefit on b.i.d. dosing regimen in controlling dry mouth to request increase to t.i.d. dosing Labs to assess drug monitoring on high-risk medication ordered Labs for Sjogren syndrome ordered Continue to follow-up with diamond assorter Dr. Silveira for dry eye management. . Avoid oral NSAIDs in setting of bariatric surgery Return to clinic in 6 months or sooner if needed (2) Raynaud disease: Comment: Controlled with conservative management Code(s): I73.00 - Raynaud's syndrome without gangrene Category: Medical Qualifiers: Raynaud?s-associated gangrene presence: without gangrene Qualified Code(s): I73.00 - Raynaud's syndrome without gangrene Plan: Continue conservative management (3) Chronic neck pain: Comment: Myofascial strain is contributing from trapezius muscles. She has failed PT in the past and topical lidocaine Code(s): M54.2 - Cervicalgia; G89.29 - Other chronic pain Category: Medical Plan: After lab results are reviewed, I will send prescription for NSAID Apply heat to neck twice a day for at least 2 weeks Continue monthly massages Start using TENs unit at home a few times a week Consider pain management referral for trigger point injections if she does not have relief with the above I am ordering C-spine x-ray to rule out joint pathology contributing to her neck pain RTC 6 months Orders: Orders Complete Blood Count Auto Diff Today M35.00 - Sjogren syndrome, unspecified Alanine Aminotransferase Today M35.00 - Sjogren syndrome, unspecified Rheumatoid Factor Today M35.00 - Sjogren syndrome, unspecified Creatinine Today M35.00 - Sjogren syndrome, unspecified Complement C3 Today M35.00 - Sjogren syndrome, unspecified XR cervical spine 3V Today G89.29 - Other chronic pain, M54.2 - Cervicalgia Complement C4 Today M35.00 - Sjogren syndrome, unspecified C Reactive Protein Today M35.00 - Sjogren syndrome, unspecified Aspartate Amino Transferase Today M35.00 - Sjogren syndrome, unspecified Erythrocyte Sedimentation Rate Today M35.00 - Sjogren syndrome, unspecified Protein Electrophoresis, Serum Today M35.00 - Sjogren syndrome, unspecified Medications: New pilocarpine HCl 5 mg PO BID 60 tabs 11RF Refilled hydroxychloroquine (Plaquenil) 400 mg (2 x 200 mg) PO DAILY 180 tabs 1RF Coding Level of Care Code Est Pt Level 4 (09548) Complex EM visit Add On G2211 Diagnoses Sjogren syndrome with inflammatory arthritis M35.05 Sjogren organ or system involvement: inflammatory arthritis Raynaud's disease without gangrene I73.00 Raynaud?s-associated gangrene presence: without gangrene Chronic neck pain M54.2; G89.29
--- OUTSIDE RECORDS SUMMARY | 2025-07-15 11:32 | XMS_ITS | Data Portability ---
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 Plan of Treatment Reminders Order Date Submit Date Provider Last Modified By Organization Details Last Modified Time Details Appointments None recorded. Lab lipid panel, serum 2016 017 MONY [facility], [address] [facility], [address], [place], [address], 7 20:17:25 Referral nutritionis t/dietitian referral 2016 017 [email or web address] Not available 7 13:58:08 physiatry referral - pt has chronic pain in neck//spasm in upper back/headac hes. pt feels she has lower extremity numbness and is concerned re cervical spinal stenosis. Pt tried PT few yrs ago and found no relief 2016 017 abiy [facility], [address] [facility], [address], [place], [address], 8 12:44:49 Procedures cerumen removal (PROC) 2016 017 MONY In-Office Order, Internal Use Only DO Not Attach Compendium DO Not Attach Compendium, Do Not Delete/merge, [id number] 7 10:54:44 Surgeries None recorded. Imaging None recorded. Medication Orders ranitidine 150 mg tablet 2016 017 [id number], [address], [place], [id number], 8 13:54:08 Patient TargetsNo targets recorded. Patient Instructions Encounter Date Encounter Id Patient Instructions Last Modified By Organization Details Last Modified Time 06/15/2017 [id number] earwax blockage: care instructions [email or web address] Not available [...] with the assessment and plan of care. linette Not available 06/15/2017 12:39:08 10/13/2017 [id number] back pain: care instructions Not available 10/13/2017 [...] Oneil Penn, Internal Medicine, Encounter Date: 03/23/2017 Station Installation Supervisor/dietitian Refer ral for Body mass index 40+ [...] 03/23/2017 20:17:03/23/2003/23/2017 CMP, serum or plasm a BUN 12 [...] 20:17:24 03/23/2003/23/2017 CMP, serum or plasm a calcium 8.9 [...] The Location Of Their Choice, 03/23/2017 20:17:25 03/23/20 17 03/23/2017 lipid panel , serum non HDL cholesterol (calc) 105 mg/dL (<160) Not Available [facility] (Centralized Electronic Ordering - All Locations) Patient Can Go To The Location Of Their Choice, [id number] 03/23/2017 20:17:25 Result Notes None recorded. Problems Name Problem SNOMED Code Status Onset Date Resolution Date Notes Provider Name and Address Organization Details Recorded Time Body mass index 30+ - obesity 479227316 Active Oneil amos, [facility] 6 15:54:50 Sleep disorder 57625474 Active Oneil amos, [facility] 6 16:17:59 Change in skin lesion 548541804 Completed 09/29/2016 Brittany amos [facility] 7 11:43:34 Acute pharyngi tis 176069043 Completed 200704/17/2014 RECORDED 08/18/20 08 10:53AM BY IVORY MONTEMAYOR ON/ADDEN BRE Hung arvind null, [facility] 6 15:54:50 Dysuria 87237663 Completed 200704/17/2014 RECORDED 08/18/20 08 11:09AM BY IVORY MONTEMAYOR ON/JUAN DAVID Hung arvind null, [facility] 6 15:54:50 General examinat ion of patient Completed 200704/17/2014 RECORDED 08/18/20 08 10:53AM BY IVORY MONTEMAYOR ON/JUAN DAVID Hung arvind null, [facility] 6 15:54:50 Active or passive immuniza tion Completed 200704/17/2014 RECORDED 08/18/20 08 10:53AM BY IVORY MONTEMAYOR ON/JUAN DAVID Hung arvind null, [facility] 6 15:54:50 Administ ration of bacteria l and viral vaccine Completed 200704/17/2014 RECORDED 08/18/20 08 11:07AM BY LUCAS CORONA, OFFICE VISIT Oneil samuels null, [facility] 6 15:54:50 Acute pharyngi tis 121749652 Completed 200703/25/2014 RECORDED 08/18/20 08 10:53AM BY IVORY MONTEMAYOR ON/ADDEN DUM Oneil KellerChrismonroe arvind null, [facility] 6 15:54:50 Dysuria 39514738 Completed 200703/25/2014 RECORDED 08/18/20 08 11:09AM BY IVORY MONTEMAYOR ON/ADDEN DUM Oneil KellerChrismonroe arvind null, [facility] 6 15:54:50 General examinat ion of patient Completed 200703/25/2014 RECORDED 08/18/20 08 10:53AM BY IVORY MONTEMAYOR ON/ADDEN DUM Oneil KellerChrismonroe arvind null, [facility] 6 15:54:50 Active or passive immuniza tion Completed 200703/25/2014 RECORDED 08/18/20 08 10:53AM BY IVORY MONTEMAYOR ON/ADDEN DUM Oneil PavonFaustinoan arvind null, [facility] 6 15:54:50 Administ ration of bacteria l and viral vaccine Completed 200703/25/2014 RECORDED 08/18/20 08 11:07AM BY LUCAS CORONA, OFFICE VISIT Oneil Hung arvind null, [facility] 6 15:54:50 Acute pharyngi tis 424084163 Completed 200704/18/2014 RECORDED 08/18/20 08 10:53AM BY IVORY MONTEMAYOR ON/ADDEN DUM Oneil KellerAleann mariean arvind null, [facility] 6 15:54:50 Dysuria 76394481 Completed 200704/18/2014 RECORDED 08/18/20 08 11:09AM BY IVORY MONTEMAYOR ON/ADDEN DUM Oneil LibradoSlava arvind null, [facility] 6 15:54:50 General examinat ion of patient Completed 200704/18/2014 RECORDED 08/18/20 08 10:53AM BY IVORY MONTEMAYOR ON/ADDEN DUM Oneil LibradoSlava arvind null, [facility] 6 15:54:50 Active or passive immuniza tion Completed 200704/18/2014 RECORDED 08/18/20 08 10:53AM BY IVORY MONTEMAYOR ON/ADDEN DUM Oneil PavonSlava arvind null, [facility] 6 15:54:50 Administ ration of bacteria l and viral vaccine Completed 200704/18/2014 RECORDED 08/18/20 08 11:07AM BY LUCAS CORONA, OFFICE VISIT Oneil Wisemanann mariemonroe samuels null, [facility] 6 15:54:50 Cough 77394790 Completed 200804/17/2014 RECORDED 09/19/19 09 2:55PM BY ANDRE ARVIZU MA, IVORY ON/ADDEN DUM Oneil LibradoSlava arvind null, [facility] 6 15:54:50 Fever 715778024 Completed 200804/17/2014 RECORDED 09/19/19 09 2:55PM BY ANDRE ARVIZU MA, GISELEATI ON/ADDEN DUM Oneil Bolandan arvind null, [facility] 6 15:54:50 Intrinsi c asthma 251487241 Completed 200803/25/2014 RECORDED 09/19/19 09 2:55PM BY ANDRE ARVIZU MA, ANNOTATI ON/ADDEN DUM Brittany De Dios MA null, [facility] 7 13:06:09 Cough 16728745 Completed 200803/25/2014 RECORDED 09/19/19 09 2:55PM BY ANDRE ARVIZU MA, ANNOTATI ON/ADDEN DUM Oneil D'Alessan arvind null, [facility] 6 15:54:50 Fever 198898652 Completed 200803/25/2014 RECORDED 09/19/19 09 2:55PM BY ANDRE ARVIZU MA, ANNOTATI ON/ADDEN DUM Oneil D'Alessan arvind null, [facility] 6 15:54:50 Cough 26151336 Completed 200804/18/2014 RECORDED 09/19/19 09 2:55PM BY ANDRE ARVIZU MA, ANNOTATI ON/ADDEN DUM Oneil D'Alessan arvind null, [facility] 6 15:54:50 Fever 651814377 Completed 200804/18/2014 RECORDED 09/19/19 09 2:55PM BY ANDRE ARVIZU MA, ANNOTATI ON/ADDEN DUM Oneil D'Alessan arvind null, [facility] 6 15:54:50 Migraine 63051382 Completed 201103/25/2014 RECORDED 12/01/19 12 8:11AM BY ANDRE ARVIZU MA, ANNOTATI ON/ADDEN DUM Brittany De Dios MA null, [facility] 7 13:06:19 Abnormal weight gain 030584517 Completed 201104/17/2014 RECORDED 05/30/20 12 8:37AM BY SAMRA RAPP MA, ANNOTATI ON/ADDEN DUM Oneil D'Alessan arvind null, [facility] 6 15:54:50 Otitis media 38617861 Completed 201104/17/2014 RECORDED 05/30/20 12 8:37AM BY SAMRA RAPP MA, ANNOTATI ON/ADDEN DUM Oneil D'Alessan arvind null, [facility] 6 15:54:50 Acute sinusiti s 52842101 Completed 201104/17/2014 RECORDED 05/30/20 12 8:37AM BY SAMRA RAPP MA, IVORY ON/[facility] Oneil KellerChrismonroe arvind null, [facility] 6 15:54:50 Asthma 257263591 Completed 201104/17/2014 IMPRESSI ON: LIKELY EXACERBA BHARATI BY URI/SINU SITIS. LUNGS SOUNDS GOOD TODAY; NO INDICATI ON FOR PREDNISO NE. CONTINUE WITH INHALERS DIRECTED .; RECORDED 05/30/20 12 8:37AM BY SAMRA RAPP MA, [facility] Oneil KellerChrismonroe arvind null, [facility] 6 15:54:50 Candidal vulvovag initis 93301752 Completed 201104/17/2014 IMPRESSI ON: PT GETS FREQUENT VAGINITI S SECONDAR Y TO ABX USE. RX GIVEN FOR PT TO FILL IF SXS OCCUR.; RECORDED 05/30/20 12 8:37AM BY SAMRA RAPP MA, IVORY ON/[facility] Oneil PavonFaustinomonroe arvind null, [facility] 6 15:54:50 Impacted cerumen 35164375 Completed 201104/17/2014 RECORDED 05/30/20 12 8:37AM BY SAMRA RAPP MA, IVORY ON/[facility] Oneil KellerChrismonroe arvind null, [facility] 6 15:54:50 Shoulder joint pain 417957651 Completed 201104/17/2014 RECORDED 05/30/20 12 8:37AM BY SAMRA RAPP MA, ANNOTATI ON/[facility] Oneil PavonFaustinomonroe arvind null, [facility] 6 15:54:50 Low back pain 036334600 Completed 201104/17/2014 IMPRESSI ON: MILD SCIATICA . NO SXS OF THIS FOR 2 DAYS; RECORDED 05/30/20 12 8:36AM BY SAMRA RAPP MA, IVORY ON/ADDEN DUM Oneil Librado'Alessan arvind null, [facility] 6 15:54:50 Malaise and fatigue 484366324 Completed 201104/17/2014 RECORDED 05/30/20 12 8:37AM BY SAMRA RAPP MA, IVORY ON/ADDEN DUM Oneil Librado'Alessan arvind null, [facility] 6 15:54:50 Candidia sis of mouth 88958591 Completed 201104/17/2014 IMPRESSI ON: TREATED FOR THRUSH X 2 NOW, MOST RECENTLY NO BENEFIT FROM ORAL ANTIFUNG ALS. LAST EXAM BY MYSELF DID NOT SEEM ALL THAT CONSISTE NT WITH THRUSH, AT THIS POINT SHOULD BE SEEN BY ENT TO CONFIRM THE DX; RECORDED 05/30/20 12 8:36AM BY SAMRA RAPP MA, ANNOTATI ON/ADDEN BRE Oneil Librado'Alessan arvind null, [facility] 6 15:54:50 Chronic sinusiti s 51513737 Completed 201104/17/2014 RECORDED 05/30/20 12 8:36AM BY SAMRA RAPP MA, ANNOTATI ON/ADDEN DUM Oneil Librado'Alessan arvind null, [facility] 6 15:54:50 Viral disease 25136630 Completed 201104/17/2014 RECORDED 05/30/20 12 8:37AM BY SAMRA RAPP MA, ANNOTATI ON/ADDEN DUM Oneil Pavon'Alessan arvind null, [facility] 6 15:54:50 Abnormal weight gain 691152859 Completed 201103/25/2014 RECORDED 05/30/20 12 8:37AM BY SAMRA RAPP MA, ANNOTATI ON/ADDEN DUM Oneil Librado'Alessan arvind null, [facility] 6 15:54:50 Otitis media 79960811 Completed 201103/25/2014 RECORDED 05/30/20 12 8:37AM BY SAMRA RAPP MA, ANNOTATI ON/[facility] Oneil KellerAlemanuel arvind null, [facility] 6 15:54:50 Acute sinusiti s 89044416 Completed 201103/25/2014 RECORDED 05/30/20 12 8:37AM BY SAMRA RAPP MA, IVORY ON/[facility] Oneil Hung arvind null, [facility] 6 15:54:50 Asthma 844280785 Completed 201103/25/2014 IMPRESSI ON: LIKELY EXACERBA BHARATI BY URI/SINU SITIS. LUNGS SOUNDS GOOD TODAY; NO INDICATI ON FOR PREDNISO NE. CONTINUE WITH INHALERS DIRECTED .; RECORDED 05/30/20 12 8:37AM BY SAMRA RAPP MA, IVORY ON/[facility] Oneil KellerAlemanuel arvind null, [facility] 6 15:54:50 Candidal vulvovag initis 29277976 Completed 201103/25/2014 IMPRESSI ON: PT GETS FREQUENT VAGINITI S SECONDAR Y TO ABX USE. RX GIVEN FOR PT TO FILL IF SXS OCCUR.; RECORDED 05/30/20 12 8:37AM BY SAMRA RAPP MA, IVORY ON/[facility] Oneil Hung arvind null, [facility] 6 15:54:50 Impacted cerumen 75494188 Completed 201103/25/2014 RECORDED 05/30/20 12 8:37AM BY SAMRA RAPP MA, IVORY ON/[facility] Oneil Hugn arvind null, [facility] 6 15:54:50 Shoulder joint pain 572715377 Completed 201103/25/2014 RECORDED 05/30/20 12 8:37AM BY SAMRA RAPP MA, IVORY ON/[facility] Oneil KellerAlemanuel arvind null, [facility] 6 15:54:50 Low back pain 020279202 Completed 201103/25/2014 IMPRESSI ON: MILD SCIATICA . NO SXS OF THIS FOR 2 DAYS; RECORDED 05/30/20 12 8:36AM BY SAMRA RAPP MA, ANNOTATI ON/ADDEN BRE KellerAlemanuel samuels null, [facility] 6 15:54:50 Malaise and fatigue 383175075 Completed 201103/25/2014 RECORDED 05/30/20 12 8:37AM BY SAMRA RAPP MA, IVORY ON/ADDEN DUM Oneil KellerAlemanuel arvind null, [facility] 6 15:54:50 Candidia sis of mouth 19986957 Completed 201103/25/2014 IMPRESSI ON: TREATED FOR THRUSH X 2 NOW, MOST RECENTLY NO BENEFIT FROM ORAL ANTIFUNG ALS. LAST EXAM BY MYSELF DID NOT SEEM ALL THAT CONSISTE NT WITH THRUSH, AT THIS POINT SHOULD BE SEEN BY ENT TO CONFIRM THE DX; RECORDED 05/30/20 12 8:36AM BY SAMRA RAPP MA, ANNOTATI ON/ADDYAS DUM Oneil samuels null, [facility] 6 15:54:50 Adult health examinat ion Completed 201103/25/2014 RECORDED 05/30/20 12 8:37AM BY SAMRA RAPP MA, ANNOTATI ON/ADDEN DUM Brittany De Dios MA null, [facility] 7 11:43:22 Chronic sinusiti s 16004659 Completed 201103/25/2014 RECORDED 05/30/20 12 8:36AM BY SAMRA RAPP MA, ANNOTATI ON/ADDEN DUM Oneil KellerAlemanuel samuels null, [facility] 6 15:54:50 Viral disease 31534931 Completed 201103/25/2014 RECORDED 05/30/20 12 8:37AM BY SAMRA RAPP MA, ANNOTATI ON/ADDEN DUM Oneil KellerAlemanuel arvind null, [facility] 6 15:54:49 Abnormal weight gain 972643113 Completed 201104/18/2014 RECORDED 05/30/20 12 8:37AM BY SAMRA RAPP MA, ANNOTATI ON/ADDEN DUM Oneil Pavon'Alessan arvind null, [facility] 6 15:54:50 Otitis media 09272677 Completed 201104/18/2014 RECORDED 05/30/20 12 8:37AM BY SAMRA RAPP MA, ANNOTATI ON/ADDEN DUM Oneil Librado'Alessan arvind null, [facility] 6 15:54:50 Acute sinusiti s 50556542 Completed 201104/18/2014 RECORDED 05/30/20 12 8:37AM BY SAMRA RAPP MA, ANNOTATI ON/ADDEN DUM Oneil Pavon'Alessan arvind null, [facility] 6 15:54:50 Asthma 474112051 Completed 201104/18/2014 IMPRESSI ON: LIKELY EXACERBA BHARATI BY URI/SINU SITIS. LUNGS SOUNDS GOOD TODAY; NO INDICATI ON FOR PREDNISO NE. CONTINUE WITH INHALERS DIRECTED .; RECORDED 05/30/20 12 8:37AM BY SAMRA RAPP MA, IVORY ON/ADDEN DUM Oneil Pavon'Alessan arvind null, [facility] 6 15:54:50 Candidal vulvovag initis 84100684 Completed 201104/18/2014 IMPRESSI ON: PT GETS FREQUENT VAGINITI S SECONDAR Y TO ABX USE. RX GIVEN FOR PT TO FILL IF SXS OCCUR.; RECORDED 05/30/20 12 8:37AM BY SAMRA RAPP MA, IVORY ON/ADDEN DUM Oneil Librado'Alessan arvind null, [facility] 6 15:54:50 Impacted cerumen 62863105 Completed 201104/18/2014 RECORDED 05/30/20 12 8:37AM BY SAMRA RAPP MA, ANNOTYOLANDA ON/ADDEN DUM Oneil Librado'Alessan arvind null, [facility] 6 15:54:50 Shoulder joint pain 724380411 Completed 201104/18/2014 RECORDED 05/30/20 12 8:37AM BY SAMRA RAPP MA, IVORY ON/ADDEN DUM Oneil Pavon'Alessan arvind null, [facility] 6 15:54:50 Low back pain 733056234 Completed 201104/18/2014 IMPRESSI ON: MILD SCIATICA . NO SXS OF THIS FOR 2 DAYS; RECORDED 05/30/20 12 8:36AM BY SAMRA RAPP MA, ANNOTATI ON/ADDEN DUM Oneil Pavon'Alessan arvind null, [facility] 6 15:54:50 Malaise and fatigue 450211775 Completed 201104/18/2014 RECORDED 05/30/20 12 8:37AM BY SAMRA RAPP MA, IVORY ON/ADDEN DUM Oneil Librado'Alessan arvind null, [facility] 6 15:54:50 Candidia sis of mouth 39207462 Completed 201104/18/2014 IMPRESSI ON: TREATED FOR THRUSH X 2 NOW, MOST RECENTLY NO BENEFIT FROM ORAL ANTIFUNG ALS. LAST EXAM BY MYSELF DID NOT SEEM ALL THAT CONSISTE NT WITH THRUSH, AT THIS POINT SHOULD BE SEEN BY ENT TO CONFIRM THE DX; RECORDED 05/30/20 12 8:36AM BY SAMRA RAPP MA, IVORY ON/[facility] Oneil Librado'Alessan arvind null, [facility] 6 15:54:50 Chronic sinusiti s 13757438 Completed 201104/18/2014 RECORDED 05/30/20 12 8:36AM BY SAMRA RAPP MA, IVORY ON/ADDYAS DUM Oneil Librado'Alessan arvind null, [facility] 6 15:54:50 Viral disease 86628854 Completed 201104/18/2014 RECORDED 05/30/20 12 8:37AM BY SAMRA RAPP MA, IVORY ON/ADDEN DUM Oneil Pavon'Alessan arvind null, [facility] 6 15:54:50 Influenz a vaccine needed 66540528185 06 Completed 201304/17/2014 RECORDED 09/13/19 14 12:43PM BY SAMRA RAPP MA, ANNOTATI ON/ADDEN DUM Oneil KellerAlessan arvind null, [facility] 6 15:54:50 Influenz a vaccine needed 34492122624 06 Completed 201303/25/2014 RECORDED 09/13/19 14 12:43PM BY SAMRA RAPP MA, ANNOTATI ON/ADDEN DUM Oneil KellerAleann mariean arvind null, [facility] 6 15:54:50 Influenz a vaccine needed 12786686405 06 Completed 201304/18/2014 RECORDED 09/13/19 14 12:43PM BY SAMRA RAPP MA, ANNOTATI ON/ADDEN DUM Oneil Bolandan arvind null, [facility] 6 15:54:50 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 2013 Brittany amos, [facility] 7 13:06:03 Allergic rhinitis 59020198 Completed 201309/29/2016 RECORDED 01/18/20 14 3:12PM BY FAITH BRADFORD MA, OFFICE VISIT Brittany amos, [facility] 7 11:43:38 Alopecia 18133545 Active 2013 Brittany amos [facility] 7 13:06:29 Anemia 916173906 Active 2013 Brittany amos [facility] 7 13:06:12 Intrinsi c asthma 843069592 Active 2013 Brittany amos [facility] 7 13:06:09 Elevated blood-pr essure reading without diagnosi s of hyperten dk 862178050 Active 2013 Brittany amos [facility] 7 13:06:16 Tobacco user 215549248 Active 2013 Brittany amos [facility] 7 13:05:57 History of clinical finding in subject 185091354 Completed 201309/29/2016 RECORDED 01/18/20 14 3:12PM BY FAITH BRADFORD MA, OFFICE VISIT Brittany amos [facility] 7 11:43:31 Adult health examinat ion Completed 201309/29/2016 RECORDED 01/18/20 14 3:15PM BY FAITH BRADFORD MA, OFFICE VISIT Brittany amos [facility] 7 11:43:22 Hyperlip idemia 89730569 Active 2013 Brittany amos [facility] 7 13:06:23 Migraine 65258134 Active 2013 Brittany amos [facility] 7 13:06:19 Neck pain 75991655 Completed 201309/29/2016 IMPRESSI ON: IF NOT BETTER WITH PT, MAKE OV F/U; RECORDED 01/18/20 14 3:12PM BY FAITH BRADFORD MA, OFFICE VISIT Brittany amos [facility] 7 11:43:42 Morbid obesity 007065873 Active 2013 Brittany amos [facility] 7 13:06:06 Raynaud' s disease 254981938 Active 2013 Brittany amos [facility] 7 13:05:59 Knee pain Active 2016 Margy amos [facility] 7 13:11:22 Allergic conjunct ivitis 770094997 Active 2016 Oneil amos [facility] 7 20:34:35 Problem Notes None recorded. Procedures Surgical History Date Name Laterality Status Provider Name and Address Organization Details Recorded Time 8 Date of Last Pap Smear completed Roberta Ga [facility] 11/28/2017 15:23:37 7 Eye Surgery completed Brittany De Dios MA [facility] 09/29/2016 11:54:41 7 Breast Surgery completed Brittanyavril De Dios [facility] 02/11/2016 15:13:40 0 Orthopedic Surgery completed Brittanyavril De Dios MA [facility] 02/11/2016 15:13:56 Imaging Results None recorded. Procedure Notes None recorded. Medical Equipment None Reported. Allergies Allergen ID Allergen Name Allergen Category Reaction Reaction Severity Criticality Documentation Date Start Date Code Code System Note Provider Name and Address Organization Details Recorded Time 764 latex environme nt,medica tion Not available Not available Not available 03/25/20142013 84495 91 [facility] 13:05[facility]44 765 Substance with tetracycl ine structure (substanc e) medicatio n Not available Not available Not available 03/25/20142013 29857 8001 SNOMED [facility] 7 13:05:48 Medications Name Sig Start Date [...] 12 10:49AM BY SUKHWINDER ADAN, MEDICATI ON [facility] N; Not Available Not Available Not Available fluconazo le 150 mg tablet X 1 PRN YEAST VAGINITI S 02/10 completed Not Available Not Available Not Available clarithro mycin 500 mg tablet TWO TIMES DAILY 08/29 completed RECORDED 12/31/19 10 2:09PM BY CICI VAZ MD, MEDICATI ON [facility] N; Not Available Not Available Not [...] in Arterial blood by Pulse oximetry Systolic And Diastolic Provider Name and Address Organization Details Last Updated DateTime 8 161.925 cm 36 kg/m2 33349.2 1 g 97.8 [degF] 92 /min 99 % 99 % 117/88 mm[Hg] Dinorah Scott [facility] 8 13:52:46 Date Recorded Body height Body mass index (BMI) Body weight Body temperature Oxygen saturation Oxygen saturation in Arterial blood by Pulse oximetry Heart rate Systolic And Diastolic Provider Name and Address Organization Details Last Updated DateTime 7 161.925 cm 43.8 kg/m2 825421. 27 g 98.6 [degF] 97 % 97 % 103 /min 119/79 mm[Hg] Brittany De Dios [facility] 7 13:14:29 Date Recorded Body height Oxygen saturation Oxygen saturation in Arterial blood by Pulse oximetry Heart rate Body mass index (BMI) Body weight Body temperature Systolic And Diastolic Provider Name and Address Organization Details Last Updated DateTime 7 161.925 cm 100 % 100 % 75 /min 43.9 kg/m2 680516. 67 g 98.1 [degF] 119/84 mm[Hg] [facility] [place] 7 10:24:25 Date Recorded Body height Body mass index (BMI) Body weight Heart rate Oxygen saturation Oxygen saturation in Arterial blood by Pulse oximetry Systolic And Diastolic Provider Name and Address Organization Details Last Updated DateTime 7 161.925 cm 40.9 kg/m2 485684. 6 g 84 /min 98 % 98 % 110/84 mm[Hg] [facility] 7 11:02:49 Social History Question Answer Notes LastModified by Organizat ion Details LastModified Time Tobacco Smoking Status Former Smoker Samra amos [facility] 01/30/2015 14:22:32 Do You Have An Advance Directive? Yes Information not available 02/11/2016 Is Blood Transfusion Acceptable In An Emergency? Yes Information not available 02/11/2016 What Is Your Level Of Caffeine Consumption? Occasional Coffee/tea/ soda Information not available 02/11/2016 What Type Of Diet Are You Following? REGULAR Calorie Counting Information not available 01/30/2015 Live Alone Or [...] LastModified by Organizat ion Details LastModified Time What is your level of alcohol consumption? Occasional Information not available 01/30/2015 Are you currently employed? Yes Information not available 01/30/2015 Are you able to care for yourself independently? 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 Moderate 3-4 [...] Not available 10/2015 15:55:12 Maternal Grandmother Malignant neoplasm of colon 79 83 [email or web address] Not available 14:52:01 Medical History Condition Response Obesity Y Anemia Y Headaches Y Gynecological History Statement/Question Response Date of Last Pap Smear 11/08/2017 Obstetrics History GPAL:G 0 P 0 0 0 0 Immunizations Vaccine Type Date Status Note Provider Nam e and Address Organization Details Recorded Time Influenza, split virus, trivalent, preservative 7 completed Not Available [facility] 03/25/2014 13:24:16 pneumococcal polysaccharide PPV23 8 completed Not Available [facility] 03/25/2014 13:24:16 Influenza, split virus, trivalent, preservative 8 completed Not Available [facility] 03/25/2014 13:24:16 Tdap 8 completed Not Available [facility] 03/25/2014 13:24:16 Past Encounters Encounter ID Performer Location Encounter Start Date Encounter Closed Date Diagnosis/Indication Diagnosis SNOMED-CT Code Diagnosis ICD10 Code Diagnosis IMO Codes Diagnosis Note [id number] [facility] [address] [address] [facility] [place] [address] 02/20/2007 00:00:00 [id number] auto[facility]Comm erce [address] [facility] [place] [address] 10/16/2006 00:00:00 [id number] auto[facility]Comm erce [address] [facility],[address] [place] [address] 07/23/2007 00:00:00 [id number] auto[facility]Comm erce [address] [facility],[address] [place] [address] 09/17/2007 00:00:00 [id number] auto[facility]Comm erce [address] [facility],[address] [place] [address] 09/20/2007 00:00:00 [id number] auto[facility]Comm erce [address] [facility] [place] [address] 10/18/2007 00:00:00 [id number] auto[facility]Comm erce [address] [facility] [place] [address] 11/15/2007 00:00:00 [id number] autoEComm erce [address] [facility] [address] [place] [address] 2 12/31/2007 00:00:00 [id number] autoEComm erce [address] [facility],[address] [place] [address] 02/09/2008 00:00:00 [id number] [place] [address] 08/18/2008 00:00:00 [id number] auto[address]Comm er[address] [place] [address] 09/19/2008 00:00:00 [id number] autoEComm erce [address] [facility] [address] [place] [address] 06/16/2009 00:00:00 [id number] autoEComm erce [address] [place] [address] 07/14/2009 00:00:00 [id number] autoEComm erce [address] [facility] [address] [place] [address] 08/15/2009 00:00:00 [id number] autoEComm erce [address] [facility],[address] [place] [address] 09/09/2010 00:00:00 [id number] autoEComm erce [address] [facility],[address] [place] [address] 10/21/2010 00:00:00 [id number] autoEComm erce [address] [facility],[address] [place] [address] 01/29/2011 00:00:00 [id number] autoEComm erce [address] [facility],[address] [place] [address] 03/22/2011 00:00:00 [id number] autoEComm erce [address] [facility],[address] [place] [address] 03/23/2011 00:00:00 [id number] autoEComm erce [address] [facility],[address] [place] [address] 03/25/2011 00:00:00 [id number] autoEComm erce [address] [facility],[address] [place] [address] 2 04/26/2011 00:00:00 [id number] autoEComm erce [address] [facility],[address] [place] [address] 09/29/2011 00:00:00 [id number] autoEComm erce [address] [facility] [place], [place] [address] 12/01/2011 00:00:00 [id number] autoEComm erce [address] [facility] [place], [place] [address] 01/23/2012 00:00:00 [id number] autoEComm erce [address] [facility] [place], [place] [address] 05/30/2012 00:00:00 [id number] autoEComm erce [address] [facility] [place], [place] [address] 2 09/13/2013 00:00:00 [id number] autoEComm erce [address] [facility] [place], [place] [address] 01/17/2014 00:00:00 [id number] Oneil schmidt MD Main Office [address] [address] [place], [place] [address] 01/30/2015 14:11:46 01/30/2015 15:17:57 Adult health examination 148069557 Body mass index 30+ - obesity 208191190 Sleep disorder 93070390 Migraine 04362251 pt rarel y uses fiorcet /she has mixed headaches/ work stress and migraines [id number] Oneil schmidt MD Main Office [address] [address] [place] [address] 02/11/2016 14:50:31 02/11/2016 16:21:09 Adult health examination 403124428 Z00.00 lipid levels done in 2013-low risk Change in skin lesion 39 8103437 L98.9 Sleep disorder 24786846 G47.9 pt saw sleep medicine office in [place]/ Srinivas prescribes trazadone 100 mg qhs Allergic rhinitis 246326 04 J30.9 [id number] Oneil schmidt MD Main Office [address] [facility] [address] [place] [address] 09/29/2016 11:19:21 09/29/2016 12:34:48 Body mass index 40+ - severely obese 256991220 Z68.41 E66.01 pt strongly considerin g wt loss surgery. she has been doing significan t efforts re wt loss for many years. Knee pain 46367944 M25.5 61 M25.562 Insomnia 008878881 G47.0 0 [id number] Oneil schmidt MD Main Office [address] [address] 03/23/2017 13:01:57 03/23/2017 13:58:08 Adult health examination 556536168 Z00.00 lipid levels done in 2013-low risk Neck pain 75642338 M54.2 Body mass index 40+ - severely obese 491567634 Z68.41 E66.01 pt strongly considerin g wt loss surgery. she has been doing significan t efforts re wt loss for many years. [id number] Matthew Hernandez PA-C Main Office [address] [address] 06/15/2017 10:16:38 06/15/2017 10:52:48 Impacted cerumen 19031880 H61.23 [id number] Oneil schmidt MD Main Office [address] [place] [address] 07/27/2017 10:10:57 07/27/2017 12:56:52 [id number] Oneil schmidt MD Main Office [address] [address] 07/31/2017 10:49:19 07/31/2017 12:30:22 Abdominal wall pain 501561125 R10.9 pt having appropriat e post op f/u appts Constipation 99639873 K5 9.00 stool softeners/ add miralax Gastroesop hageal reflux disease 572350435 K21.9 pt will use PPI per surgery and next year try to wean to H2 blockers Allergic rhinitis 648411 04 J30.9 cont nasal steroids and 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 might be having beginning of [...] None Recorded Advance Directives Directive Y: Payers Insurance Date Sequence Insurance Name Policy Number Policy [place] Covered Member ID [place] Member ID Guarantor Name 10/13/2017 1 AIM [place]ETH [place] [place] [id number] Mikhail Zavala [id number] Mikhail Zavala 07/27/2017 1 [facility] (O) [id number] Geri Isael [id number] Mikhail Zavala Notes Date Note Type Note Provider Name and Address Organization Details Recorded Time 03/23/20 17 text/htm l Generic HPI TemplateReported by Patient Oneil amos [facility] 03/23/2017 14:53:35 06/15/20 17 text/htm l EaracheReported by PatientHPIFor location, patient reportsright. For associated symptoms, patient reportshearing loss (r>>l)but reportsno discharge from the earsandno ringing in the ears. For quality, patient reportsthrobbing. For severity, patient reportscontinuous (getting worse over past few days). For context, patient reportsno sick contactsandno recent swimming/water in ear(+ h/o cerumen impaction few yrs ago, no use of qtips or debrox). For modifying factors, patient reportsdoes not hurt to lie on, or pull on earandnothing gives relief. Oneil amos [facility] [place] 06/15/2017 12:39:35 07/27/20 17 text/htm l Hospitalization Contact RecordReported by PatientHospitalization Contact RecordFor follow up, [facility],admit date: (please enter in format 'mm/dd/yyyy') (07/24/17),date of discharge: (please enter in format 'mm/dd/yyyy') (07/26/17), anddate of contact: (please enter in format 'mm/dd/yyyy') (07/27/17).37 year old female underwent laparoscopic sleeve gastrectomy performed by Dr. Axel Bryant on 07/24/17. Patient tolerated procedure with no complications , and followed the post op bariatric protocol . Patient tolerated stage 1 diet and transition to stage 2 diet without difficulty . Patient was discharged in good condition with guideline s of new diet regimen per Station Installation Supervisor. Windows Server Architect ONEYDA call to patient regarding discharge status [...] scheduled to see Nurse on 08/01/17 , Station Installation Supervisor on 08/11/17, Post OP with Dr. Bryant is scheduled for 08/11/17. Patient requested follow up with PCP , Coordinator scheduled patient with Dr. Funes on 07/31/17 at 11:15 am . At this time patient has no questions or concerns, aware to call in status changes. [facility] 12:56:50 07/31/20 17 text/htm l ConstipationReported by PatientHPIFor context, patient reportsrecent surgerybut reportsno recent opiatesandno history of chronic idiopathic constipation. For associated symptoms, patient reportsweight loss (15 lbs)but reportsno blood in stool. For duration, patient reportspresent <1 month. For alleviating factors, patient reportsstool softener. Abdominal PainReported by PatientAbdominal PainFor quality, patient reportsaching(pt is s/p surgery for wt loss and she has healing scars on abd wall and notes pain w/ coughing and certain movements involving torso. this is all improving slowly.). For associated symptoms, patient reportsheartburnbut reportsno fever. For onset/timing, patient reportsbetter. GERD RefluxReported by PatientHPIFor severity, patient reportsmoderate. For symptoms, patient reportsno pain swallowing. For duration, patient reportspresent <1 month(worse after wt loss surgery). For context, patient reportsnon-smokerandno drug/alcohol abuse. For associated symptoms, patient reportsno feeling of fullness/mass in throatandno hoarseness. Rhinitis/Sinusitis/Conjunctiv itis F/UReported by PatientRhinitis / Sinusitis / ConjunctivitisFor severity, patient reportsmoderate. For symptoms, patient reportsnasal congestion. For triggers, patient reportstreeandtemperature change. For medication use, patient reportsoral antihistamineandoral decongestant(due to her recent bariatric surgery pt can no longer use oral decongestant/ see plan).ROS as noted in the HPI Margy amos [facility] [place] 07/31/2017 12:36:32 10/13/19 18 text/htm l ROS as noted in the HPI 37 year old female 3 months s/p gastric sleeve surgery c/o 2 day onset of L. upper buttock/hip pinching and burning pain. 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 Denies injury . Had similar pain right after the surgery , but went away and was not as prominent. Henri Fuller MD [address] [address], [place], [address], [facility] [place] 10/13/2017 15:03:32 OBGyn Episode No OBEpisode recorded.
--- OUTSIDE RECORDS SUMMARY | 2025-07-15 11:32 | XMS_ITS | Clinical Summary ---
Author Organization [facility] Address [address] [facility] [address] [address] Phone Care Team Providers Care Invoicing Machine Operator Name Role Phone Brian De Souza DO Primary Care Provider [phone] Allergies Active Allergy Reactions Criticality Noted Date Comments Latex 01/17/2014 Tetracyclines 11/20/2018 Medications omeprazole (PRILOSEC) 20 mg TbEC Take 20 mg by mouth daily before breakfast. Active traZODone (DESYREL) 50 MG tablet Take 50 mg by mouth nightly at bedtime. Active butalbital-aceta minophen-caffein e (FIORICET, ESGIC) 50-325-40 mg per tablet butalbital-acet aminophen-caffe ine 50 mg-325 mg-40 mg tablet Active ketotifen (ZADITOR) 0.025 % (0.035 %) ophthalmic solution Wal-Zyr (ketotifen) 0.025 % (0.035 %) eye drops INSTILL 1 DROP INTO AFFECTED EYE(S) BY OPHTHALMIC ROUTE 2 TIMES PER DAY Active clobetasol (TEMOVATE) 0.05 % cream Active hydrOXYchloroQUI NE (PLAQUENIL) 200 mg tablet Take 400 mg by mouth daily. 1 Active sertraline (ZOLOFT) 25 MG tablet Take 25 mg by mouth daily. Active albuterol 90 mcg/actuation inhalerIndicatio ns:Acute upper respiratory infection Inhale 2 puffs into the lungs every 6 (six) hours as needed for wheezing or shortness of breath/dyspnea. 18 g 1 Active drospirenone-eth inyl estradioL (MARYCARMEN) 3-0.02 mg per tablet Take by mouth. 2 Active guaiFENesin-code ine (ROBITUSSIN AC) 100-10 mg/5 mL liquid Take 10 mL (20 mg of codeine total) by mouth nightly at bedtime as needed for cough. Caution: drowsiness, do not drive, drink alcohol or work while taking 100 mL 3 Active Active Problems Problem Noted Date Diagnosed Date Dizziness and giddiness 11/19/2018 Assessment & Plan (12/26/2018 9:09 AM EDT): Likely noncardiac. I have asked her to undergo a routine ETT to complete her workup. Assessment & Plan (11/20/2018 9:16 AM EDT): Best guess is that she has postural hypotension related to her large weight loss. I did try to precipitate orthostasis and in fact her blood pressure eufemia from the high 90s to the mid 1 teens when she became upright after lying flat for several minutes. Her ECG is unremarkable with a sign this rate at [address] or T wave changes. Although I think it is unlikely that she has a significant dysrhythmia or structural heart disease considering her ability to exercise I would like to exclude both so I have placed a Holter monitor today and she will actually attempt to have an event occur. She will also undergo an echocardiogram and I have asked that a TSH be drawn and a lipid profile because of her family history. I think ischemic disease is very unlikely but will reconsider stress testing after the above has been completed and she is return to my office. We did discuss the need for hydration and salt repletion but she is already aware of these issues. Immunizations Immunization Administration Dates Next Due INFLUENZA, SPLIT VIRUS, TRIVALENT W/ PRESERVATIV E IM 08/18/2008,06/11/2007 Pneumococcal polysaccharide PPSV23 07/02/2018, Td (adult),2 Lf Tetanus Toxoid, PF, Adsorbed Tdap 08/18/2008 Social History Tobacco Use Types Packs/Day Years Used Date Smoking Tobacco: Former Smokeless Tobacco: Never Tobacco Cessation:Counseling Given: Not Answered Education Answer Date Recorded Are you interested [...] Orientation Straight 02/12/2024 4: 02 PM EDT Last Filed Vital Signs Vital Sign Reading Time Taken Comments Blood Pressure 152/90 02/12/2024 10:12 PM EDT Pulse 82 02/12/2024 10:12 PM EDT Temperature 36.7 C (98.1 F) 02/12/2024 10:12 PM EDT Respiratory Rate 16 02/12/2024 10:12 PM EDT Oxygen Saturation 99% 02/12/2024 10:12 PM EDT Inhaled Oxygen Concentration - - Weight 99.8 kg (220 lb) 02/12/2024 4:04 PM EDT Height 160 cm (5' 3 ) 02/12/2024 4:04 PM EDT Body Mass Index 38.97 02/12/2024 4:04 PM EDT Plan of Treatment Health Maintenance Due Date Last Done Comments DEPRESSION SCREENING 1994 SMOKING Hx and SMOKELESS TOBACCO SCREENING 1995 HEPATITIS C SCREENING 2000 HIV ONE-TIME SCREENING (18-6 5 YEARS) 2000 PAP SMEAR 2003 MAMMOGRAM 2022 INFLUENZA VACCINE (#1) 2025 8, 06/11/2007 COVID-19 VACCINE (2024-2 6 season) 2025 SCREENING FOR DIABETES 02/11/2027 02/12/2024 Adult Td,Tdap Booster 08/24/2028 08/24/2018 , 08/18/2008 PNEUMOCOCCAL VACCINES (0-49 years) Aged Out 07/02/2018, 10/18/2007 No longer eligible based on patient's age to complete this topic HEPATITIS A VACCINES Aged Out No long er eligible based on patient's age to complete this topic HIB VACCINES Aged Out No longer eligi ble based on patient's age to complete this topic MENINGOCOCCAL VACCINES (ACWY) Aged Out No longer eligible based on patient's age to complete this topic MENINGOCOCCAL VACCINES (B) Aged Out N o longer eligible based on patient's age to complete this topic Medical Devices Not on file Insurance Care Teams Invoicing Machine Operator Relationship Specialty Start Date End Date Brian De Souza DO [address] [facility] [address] [place] [address] PCP - General Family Medicine 02/12/24 Additional Source Comments The information contained in this document represents components of the legal health record. It is not the complete legal health record.[facility]
--- OUTSIDE RECORDS SUMMARY | 2025-07-15 11:32 | XMS_ITS | Encounter Summary ---
Author Organization [facility] Address [address] [facility] [address] [place] [address] Phone Care Team Providers Care Shot Core Drill Operator Name Role Phone Jasvir Weir MD Primary Care Provider [phone] Brian De Souza DO Primary Care Provider [phone] Encounter Details Date Type Department Care Team (Latest Contact Info) Description 05/21/2021 Transcribe Orders Virtual Department [address] [place] [address] Jasvir Weir MD [address] [place], [place] [id number] [email or web address] Encounter for laboratory testing for COVID-19 virus (Primary Dx) Social History Tobacco Use Types Packs/Day Years Used Date Smoking Tobacco: Former Smokeless Tobacco: Never Comments Unknown Sex and Gender Information Value Date Recorded Sex Assigned at Female 02/12/2024 4:02 PM EDT Legal Sex Female 9:19 PM EDT Gender Identity Female 02/12/2024 4:02 PM EDT Sexual Orientation Straight 02/12/2024 4: 02 PM EDT documented as of this encounter Plan of Treatment Not on file documented as of this encounter Results * COVID-19 PCR Order (05/24/2021 11:30 AM EDT) COVID Testing Status Specimen received in analyzing lab. Results should be available within 24 to 48 hrs. [facility] Symptomatic? NO [facility] Other (Nasal swab) 05/24/2021 11:30 AM EDT 05/24/2021 11:50 AM EDT us Jasvir Weir MD LAB GENERAL ORDERABLES Final Res ult [facility] [address] [place] [address] [facility] [address] [place] [address] documented in this encounter Visit Diagnoses Diagnosis Encounter for laboratory testing for COVID-19 virus- Primary documented in this encounter Additional Health Concerns Infection Onset Date Last Indicated Resolved Time CoV-Risk 06/24/2021 06/24/2021 07/04/2021 1:22 AM EDT CoV-Risk 10/04/2021 10/04/2021 10/05/2021 9:21 PM EST COVID-19 10/04/2021 10/04/2021 10/25/2021 1:22 AM EST CoV-Risk 06/17/2022 06/17/2022 06/28/2022 1:22 AM EDT CoV-Risk 11/24/2022 11/24/2022 12/05/2022 1:22 AM EDT documented as of this encounter Care Teams Shot Core Drill Operator Relationship Specialty Start Date End Date Jasvir Weir MD [email or web address] PCP - General Family Medicine 11/20/18 02/11/24 [facility] [address] [address] PCP - General Family Medicine 02/12/24 documented as of this encounter Additional Source Comments The information contained in this document represents components of the legal health record. It is not the complete legal health record.[facility]
== END 2025-07-15 10:57 | disposition home or self-care (01) ==
LOC: HO.RHES 09:59
PROVIDERS: PCP Family Medicine; Visit Provider Internal Medicine Rheumatology
DX: M35.05 Sjogren syndrome with inflammatory arthritis (principal); I73.00 Raynaud's syndrome without gangrene; M54.2 Cervicalgia; G89.29 Other chronic pain
CPT/HCPCS: 99214; G2211

== ENCOUNTER 2025-07-16 14:33 | Outpatient (REF) | payer OTHER, SELFPAY ==
--- OUTSIDE RECORDS SUMMARY | 2021-06-24 10:23 | XMS_ITS | Encounter Summary ---
Author Organization [facility] Address [address] [facility] [address] [place] [phone] Phone Care Team Providers Care Vapor Coater Name Role Phone Jasvir Weir MD Primary Care Provider Encounter Details Date Type Department Care Team (Late st Contact Info) Description 06/24/2021 11:23 AM EDT Hospital Encounter [facility] [address] [place] [phone] Carolin Mireles PA [address] [address] [email or web address] Social History Tobacco Use Types Packs/Day Years [...] 4:02 PM EDT Marely Manzano RN * [place] Suicide Severity Rating Scale (Screener/Recent Self-Report) Question [...] documented as of this encounter Care Teams Vapor Coater Relationship Specialty Start Date End Date Jasvir Weir MD [email or web address] PCP - General Family Medicine 11/20/18 02/11/24 documented as of this encounter Additional Source Comments The information contained in this document represents components of the legal health record. It is not the complete legal health record.[facility]
--- NOTE | ~2025-07-16 | XR_ITS ---
EXAMINATION: XR CERVICAL SPINE 2-3 VIEWS HISTORY: M54.2 - Cervicalgia COMPARISON: There are no prior studies available for comparison. FINDINGS: AP, lateral, and open-mouth odontoid views of the cervical spine are submitted. Osseous mineralization is normal. Seven cervical vertebral bodies are identified maintaining normal height and alignment without evidence of fracture or subluxation. There is mild to moderate degenerative disc disease at the C5-6 and C6-7 levels, with disc space narrowing and osteophyte formation. The odontoid and lateral masses of C1 are intact. There is no prevertebral soft tissue swelling. XR/XR cervical spine 3V IMPRESSION: Degenerative disc disease of the cervical spine as described. Electronically signed by: Bernard Everett MD 07/16/2025 03:20 PM LYN[facility]E
[2025-07-16 16:03] LABS: MANUAL DIFF FLAG NO
[2025-07-16 16:11] LABS: Hematocrit 37.0 % (37.0-47.0); Hemoglobin 12.1 g/dl (12.0-16.0); Imm Gran Abs Auto 0.02 X10*3/uL (0.00-0.03); Imm Gran Pct Auto 0.3 % (0.0-0.4); Lymphocytes Absolute Auto 1.7 X10*3/uL (1.2-4.9); Mean Corpuscular HGB Conc 32.7 g/dl (31.0-35.0); Mean Corpuscular Hemoglobin 27.3 pg (27.0-33.0); Mean Corpuscular Volume 83.5 fL (80.0-98.0); NRBC Abs Auto 0.000 X10*3/uL (0.0-0.012); NRBC Pct Auto 0.0 /100WBC (0.0-0.2); Platelet Count 365 X10*3/uL (160-400); Red Blood Count 4.43 X10*6/uL (4.20-5.50); White Blood Count 7.6 X10*3/uL (4.8-10.8)
[2025-07-16 16:24] LABS: Alanine Aminotransferase 20 U/L (0-31); Aspartate Amino Transferase 28 U/L (5-31); Estimated Glomerular Filt Rate > 60
--- OUTSIDE RECORDS SUMMARY | 2025-07-16 17:44 | XMS_ITS | Clinical Summary ---
Author Organization [facility] Address [address] [facility] [address] [place] [address] Phone Care Team Providers Care Outpatient Therapist Name Role Phone Brian De Souza DO Primary Care Provider [phone] Allergies Active Allergy Reactions Criticality Noted Date [...] Devices Not on file Insurance Care Teams Outpatient Therapist Relationship Specialty Start Date End Date Brian De Souza DO [address] [facility] [address] [place] [address] PCP - General Family Medicine 02/12/24 Additional Source Comments The information contained in this document represents components of the legal health record. It is not the complete legal health record.[facility]
--- OUTSIDE RECORDS SUMMARY | 2025-07-16 17:44 | XMS_ITS | Encounter Summary ---
Author Organization [facility] Address [address] [employer] [facility] [address] [place] [address] Phone Care Team Providers Care Customer Services Supervisor Name Role Phone Jasvir Weir MD Primary Care Provider [phone] Brian De Souza DO Primary Care Provider [phone] Encounter Details Date Type Department Care Team (Latest Contact Info) Description 05/21/2021 Transcribe Orders Virtual Department [address] [place] [address] Jasvir Weir MD [address] [place], [place] [id number] [email or web address] Encounter for laboratory [...] be available within 24 to 48 hrs. [facility] Symptomatic? NO [facility] Other (Nasal swab) 05/24/2021 11:30 AM EDT 05/24/2021 11:50 AM EDT us Jasvir Weir MD LAB GENERAL ORDERABLES Final Res ult [facility] [address] [place] [address] [facility] [address] [place] [address] documented in this encounter Visit Diagnoses Diagnosis [...] documented as of this encounter Care Teams Customer Services Supervisor Relationship Specialty Start Date End Date Jasvir Weir MD [email or web address] PCP - General Family Medicine 11/20/18 02/11/24 [facility] [address] [address] PCP - General Family Medicine 02/12/24 documented as of this encounter Additional Source Comments The information contained in this document represents components of the legal health record. It is not the complete legal health record.[facility]
[2025-07-18 21:24] LABS: Prot Elec - Albumin 3.8 g/dL (3.8-4.8); Prot Elec - Alpha1 0.3 g/dL (0.2-0.3); Prot Elec - Alpha2 0.6 g/dL (0.5-0.9); Prot Elec - Beta 1 0.5 g/dL (0.4-0.6); Prot Elec - Beta 2 0.4 g/dL (0.2-0.5); Prot Elec - Gamma 1.2 g/dL (0.8-1.7); Prot Elec - Total Protein 6.8 g/dL (6.1-8.1)
== END 2025-07-16 14:34 | disposition home or self-care (01) ==
LOC: HO.HMGCX 14:33
PROVIDERS: Visit Provider Internal Medicine Rheumatology
DX: G89.29 Other chronic pain (principal); M54.2 Cervicalgia; M35.00 Sjogren syndrome, unspecified
CPT/HCPCS: 36415; 72040; 82565; 84165; 84450; 84460; 85025; 85652; 86140; 86160; 86431

== ENCOUNTER → 2025-07-16 14:50 | Outpatient (BNV) | payer OTHER, SELFPAY | PROVIDERS: Visit Provider Radiology Diagnostic Radiology | DX: M50.30 Other cervical disc degeneration, unspecified cervical region (principal) | CPT/HCPCS: 72040 ==